=== PATIENT | female | born 1935 | race Caucasian/White ===

== ENCOUNTER 2017-01-24 20:22 | Emergency (ER) | payer MEDICARE, OTHER ==
--- NOTE | ~2017-01-24 | CR72 ---
[facility] A Service of [facility] & [facility] RADIOLOGY TEXT RESULTS PATIENT: WANDA BARKER LOCATION: [facility] : 33 UNIT #: [id number] AGE: [address]: Regan De Luna MD SEX: F ORDER DR: [id number] [facility] [address] [place], [place] [address] [id number] E MR#: [id number] Acc #: [id number] NAME: WANDA BARKER : 1935 SEX: F STUDY DATE/TIME: 01/24/2017 20:58 UNIT: [facility] ROOM: STUDY DESCRIPTION: CR Chest Single View Portable Attending Physician: Regan De Luna Ordering Physician: Ed Doc Dinesh Kent Primary Care Physician: Darian Benavides M.D. MEDICAL IMAGING REPORT This report is preliminary unless electronic signature is present EXAM Portable chest HISTORY Shortness of air, weakness, confusion since yesterday. FINDINGS Portable view of the chest demonstrates moderate lung volumes satisfactory technique. No infiltrates or effusions. Heart and mediastinum unremarkable except mild aortic atherosclerotic changes. Areas of scattered parenchymal opacity could represent areas of fibrosis or scarring but no acute airspace disease, consolidation or effusions. No pneumothorax. Dictated by... Dontrell Knutson M.D. THIS IS AN ELECTRONICALLY VERIFIED REPORT Dontrell Knutson M.D. at 01/25/2017 10:11 AM JULIAN/lr TD: 01/25/2017 03:28 JOB #: [id number] MEDICAL IMAGING REPORT Page 1 of 1 COPY
--- NOTE | ~2017-01-24 | EKG ---
PATIENT: WANDA BARKER UNIT #: [id number] Ventricular Rate: 88 BPM Atrial Rate: 88 BPM P-R Interval: 160 ms QRS Duration: 86 ms Q-T Interval: 368 ms QTC Calculation(Bezet): 445 ms P Centerview: 66 degrees Calculated R Centerview: -28 degrees Calculated T Centerview: 68 degrees Diagnosis Line: Normal sinus rhythm Diagnosis Line: Normal ECG Diagnosis Line: No previous ECGs available Diagnosis Line: Confirmed by FLAQUITA VALIENTE MD ([id number]) on Diagnosis Line: 01/26/2017 2:49:00 PM INTERPRETING MD: KANDICE
--- NOTE | ~2017-01-24 | CT71 ---
[facility] A Service [facility] RADIOLOGY TEXT RESULTS PATIENT: WANDA BARKER LOCATION: [facility] : 33 UNIT #: [id number] AGE: [address]: Regan De Luna MD SEX: F ORDER DR: [id number] [facility] [address] [place], [place] [address] [id number] E MR#: [id number] Acc #: [id number] NAME: WANDA BARKER : 1935 SEX: F STUDY DATE/TIME: 01/24/2017 22:11 UNIT: [facility] ROOM: STUDY DESCRIPTION: CT Head Wo Contrast Attending Physician: Cy De Luna M.D. Ordering Physician: Physician Non-Staff Primary Care Physician: Darian Benavides M.D. MEDICAL IMAGING REPORT This report is preliminary unless electronic signature is present EXAM Noncontrast head CT. HISTORY Sent by Dinesh for evaluation of confusion, weakness, tremors x2 days. TECHNIQUE This CT exam was performed with one or more of the following radiation dose reduction techniques: automatic exposure control, adjustment of mA and/or kV according to patient size, and iterative reconstruction. FINDINGS Axial noncontrast imaging of the brain demonstrates generalized atrophy. Decreased attenuation of the periventricular white matter is nonspecific, but may reflect chronic microvascular disease. No large vessel infarct. No mass, mass effect or midline shift. Intracranial vascular calcifications are noted within the cavernous carotids and vertebral vessels. Bony calvaria, skull base, mastoids and sinuses unremarkable. IMPRESSION 1. No acute intracranial abnormality identified. 2. Generalized atrophy with periventricular white matter changes, which may reflect chronic microvascular disease. Dictated by... Dontrell Knutson M.D. THIS IS AN ELECTRONICALLY VERIFIED REPORT Dontrell Knutson M.D. at 01/25/2017 7:05 PM JULIAN/derian TD: 01/25/2017 05:20 JOB #: [id number] [facility] A Service [facility] RADIOLOGY TEXT RESULTS PATIENT: WANDA BARKER LOCATION: [facility] #: [id number] : 33 UNIT #: [id number] AGE: [address]: Regan De Luna MD SEX: F ORDER DR: MEDICAL IMAGING REPORT Page 1 of 1 COPY
[~2017-01-24 20:22] MED LIST: BENICAR20 MG PO; HYDROCHLOROTHIA25 MG PO
[2017-01-24 21:31] LABS: BASOPHIL% 0.5 % (0-2.5); EOSINOPHIL# 0.1 X10e3 (0-0.7); EOSINOPHIL% 1.3 % (0.0-7.0); HEMATOCRIT 26.4 % (35.0-45.0); HEMOGLOBIN 8.7 gm/dL (12.0-16.0); LYMPHOCYTE# 1.9 X10e3 (1.0-3.5); LYMPHOCYTE% 34.4 % (17.0-45.0); MEAN CELL VOLUME 88.2 FL (83-96); MEAN CORPUSCULAR HGB CONC 32.9 g/dL (30-36); MONOCYTE# 0.7 X10e3 (0-1.0); MONOCYTE% 13.2 % (3.0-12.0); NEUTROPHIL# 2.8 X10e3 (1.5-7.1); NEUTROPHIL% 50.6 % (40-75); PLATELET COUNT 169 X10e3 (140-420); RED CELL DISTRIBUTION WIDTH 19.8 % (11.0-15.5); WHITE BLOOD COUNT 5.5 X10e3 (4.0-10.5)
[2017-01-24 21:33] LABS: DIFF IND NO
[2017-01-24 21:55] LABS: ALBUMIN SERUM 2.9 g/dL (3.5-5.0); BILIRUBIN, DIRECT 0.1 mg/dL (0.0-0.2); BILIRUBIN,INDIRECT 0.2 mg/dL (0.0-0.9); BILIRUBIN,TOTAL 0.3 mg/dL (0.2-2.0); BUN/CREATININE RATIO 25.55; CALCIUM SERUM 9.2 mg/dL (8.4-10.2); CREATININE SERUM 0.9 mg/dL (0.6-1.4); GLOM FILT RATE Estimated 58.8 mL/min (>60); POTASSIUM 3.6 mmol/L (3.5-5.1); PROTEIN TOTAL SERUM 8.4 g/dL (6.0-8.3)
[2017-01-24 23:13] LABS: POC - CKMB 2.4 ng/mL (0.0-7.9); POC - TROPONIN <0.05 ng/mL (<=0.05)
[2017-01-24 23:19] LABS: URINE SOURCE CLEAN CATCH
[2017-01-24 23:25] LABS: URINE APPEARANCE CLEAR; URINE BILIRUBIN NEG (NEG); URINE BLOOD 2+ (NEG); URINE COLOR YELLOW; URINE GLUCOSE NEG (NEG); URINE KETONE NEG (NEG); URINE LEUKOCYTE ESTERASE 1+ (NEG); URINE NITRATE NEG (NEG); URINE PH 6.5 (5-8); URINE PROTEIN 2+ (NEG); URINE SPECIFIC GRAVITY 1.024 (1.003-1.035)
[2017-01-24 23:27] LABS: CULTURE INDICATED? YES; URINE BACTERIA AUWI 1+ (NEGATIVE); URINE SQUAMOUS EPITHELIAL CELL NONE SEEN /[HPF]
[2017-01-26] MEDS ORDERED: BENICAR20 MG PO (21:21)
[2017-01-26] MEDS ORDERED: HYDROCHLOROTH12.5 M1 PO (21:22)
[2017-01-26] MEDS ORDERED: COLCRYS0.6 M2 PO (21:22)
[2017-01-26] MEDS ORDERED: NITROFURANTOIN100 M4 PO (21:24)
== END 2017-01-25 00:20 | disposition home or self-care (01) ==
LOC: CED 20:22
PROVIDERS: Emergency Medicine
DX: N30.00 Acute cystitis without hematuria (principal); R41.0 Disorientation, unspecified; D64.9 Anemia, unspecified; I10 Essential (primary) hypertension
CPT/HCPCS: 36415; 70450; 71010; 80048; 80076; 81003; 82553; 84484; 85025; 87086; 93005; 99285

== ENCOUNTER 2017-01-26 20:31 | Observation (INO) | payer MEDICARE, OTHER ==
--- NOTE | ~2017-01-26 | DS ---
Unit #: [id number] #: [id number] Patient: WANDA ANN [id number] [address] [place], [place] [address] [id number] I MR#: [id number] NAME: WANDA ANN. ROOM: 559 Age: 82 Sex: F Admission Date: 01/26/2017 : 1935 Discharge Date: 01/28/2017 Attending Physician: Loretta Rachel M.D. Primary Care Physician: Darian Benavides M.D. DISCHARGE SUMMARY PRINCIPAL DIAGNOSES 1. Toxic metabolic encephalopathy, likely multifactorial including recent urinary tract infection plus medication induced. 2. Hypokalemia. 3. Hypertension. 4. History of pseudogout. 5. Osteoporosis. 6. Patient report of RA. CLINICAL RESEARCH NURSE COORDINATOR Dr. Cantrell, Neurology. PROCEDURES 1. CT of the head without contrast on January 26, 2017 with no intracranial findings. Generalized atrophy and periventricular white matter changes are noted. 2. Chest x-ray on January 26, 2017, without acute findings. 3. MRI of the brain without contrast on January 27, 2017 with generalized atrophy, chronic white matter disease noted. 4. MRA of head and neck was normal. CLINICAL HISTORY AND HOSPITAL COURSE Ms. Ann is an 82-year-old female brought to the emergency department by family due to increasing confusion that began just before diagnosis of UTI. Patient was started on Macrobid initially on January 24 and sent home; however, her confusion did not improve and she was brought back to the emergency department. CT scan done on both January 24 and January 26 was unremarkable. Lab work was also essentially unremarkable with exception of some mild hypokalemia and patient was subsequently admitted. Workup included MRI of the brain which was unremarkable and patient was seen by Dr. Cantrell. Symptoms are most consistent with a toxic metabolic encephalopathy plus or minus delirium. I suspect perhaps she had confusion from a urine infection, though I will note urine culture from January 24 was negative. Perhaps, things were exacerbated by Macrobid. Family adamantly denies any short-term memory loss at home but it is difficult for me to assess whether this is the case or not. I am currently awaiting a TSH and vitamin B12 which I will replace if necessary; however, patient's delirium is improving on its own. She is mildly weak and I will arrange for home health given family does not want inpatient rehab. DISCHARGE CONDITION Stable. Unit #: [id number] #: [id number] Patient: WANDA ANN DISCHARGE STATUS Discharge to home. DISCHARGE MEDICATIONS 1. Benicar 20 mg daily. 2. Hydrochlorothiazide 12.5 mg daily. 3. Colchicine 0.6 mg daily. DISCHARGE INSTRUCTIONS 1. The patient was instructed to follow a regular diet. 2. She can increase her activity as tolerated under the care of home health. FOLLOWUP Patient will follow up with Dr. Benavides in one week, can have further testing for dementia as an outpatient at that time. Please note, I have discontinued antibiotics given her culture was negative. Time spent on discharge, 34 minutes. Dictated by... Loretta Rachel M.D. ROBERT/rigoberto TD: 01/28/2017 09:12 JOB #: [id number] DISCHARGE SUMMARY Page 1 of 1 X Loretta Rachel MD X DISCHARGE SUMMARY
--- NOTE | ~2017-01-26 | MR133 ---
[facility] A Service of [facility] & [facility] RADIOLOGY TEXT RESULTS PATIENT: WANDA BARKER LOCATION: [place] [address] : [birth year] UNIT #: [id number] AGE: [address]: Loretta Rachel MD SEX: F ORDER DR: [id number] [facility] [address] [place], [place] [address] [id number] I MR#: [id number] Acc #: [id number] NAME: WANDA BARKER. : 1935 SEX: F STUDY DATE/TIME: 01/27/2017 9:00 UNIT: CEDOF ROOM: 01525 STUDY DESCRIPTION: MR MRA Neck WWo Contrast Attending Physician: Carina Walker M.D. Ordering Physician: Cassie Hedrick M.D. Primary Care Physician: Darian Benavides M.D. MRI CENTER REPORT This report is preliminary unless electronic signature is present. EXAM MRA of the cervical carotid vertebral arteries HISTORY SUPPLIED Left-sided weakness beginning on the with increasing confusion. TECHNIQUE 3D [id number] MRA was performed of the cervical carotids and vertebral arteries. FINDINGS There is motion degradation artifact. The vessels are tortuous and moderately irregular. No hemodynamically significant stenosis identified in either carotid or vertebral artery. CONCLUSION Motion-degraded study. No significant stenosis identified in either bifurcation or either vertebral artery. Dictated by... Dave Redd M.D. THIS IS AN ELECTRONICALLY VERIFIED REPORT Dave Redd M.D. at 01/28/2017 8:39 AM STEPHANIE/warren TD: 01/27/2017 10:45 JOB #: [id number] MRI CENTER REPORT Page 1 of 1 COPY
--- NOTE | ~2017-01-26 | CO ---
Unit #: [id number] #: [id number] Patient: WANDA BARKER [id number] [facility] [address] [place], [place] [address] [id number] I MR#: [id number] NAME: WANDA BARKER. ROOM: 559 Age: 82 Sex: F Admission Date: 01/26/2017 : 1935 Attending Physician: Loretta Rachel M.D. Primary Care Physician: Darian Benavides M.D. Consultation Date: 01/27/2017 CONSULTATION REPORT PRIMARY CARE PHYSICIAN Dr. Darian Benavides. REASON FOR CONSULTATION Mental status changes. PATIENT IDENTIFICATION This is an 82-year-old, right-handed, white female, who is evaluated in room ER 20 at [facility]. SOURCE OF INFORMATION The patient, her daughter, and evaluation done by admitting team. PROBLEM LIST 1. History of pseudogout. 2. Osteoporosis. 3. Hypertension. 4. History of left knee surgery. 5. Recent diagnosis of UTI, for which she was started on treatment. 6. She does have these kind of situation whenever she has infection or she is treated with antibiotics. HISTORY OF PRESENT ILLNESS This 82-year-old female, who actually was seen in the emergency room I believe on 01/24/2017. She was found to have mild UTI. She was started on Macrobid and sent home. She came back with more confusion. She was given some fluids and everything else was evaluated and she is doing great. She already had CT done, which was unremarkable. She had MRI done, which was unremarkable. She had MRA of head and neck, which was unremarkable. She is afebrile. The labs otherwise looked okay. No falls or injuries. No seizures. No migraines. No meningitis. No insect bites. No change in medication. I talked to her daughter and this patient is normally very fine and she has no medical problems and right Now she is nonfocal. PAST MEDICAL HISTORY As discussed above. PAST SURGICAL HISTORY As discussed above. ALLERGIES Unit #: [id number] #: [id number] Patient: WANDA BARKER None known to me. HOME MEDICATIONS Benicar 20 mg, colchicine 0.6 mg daily, hydrochlorothiazide 12.5 mg daily, Macrobid 100 mg b.i.d. Medication here, please refer to the MAR. FAMILY HISTORY Mother at age 42 from cardiomyopathy. Brother of coronary artery disease. SOCIAL HISTORY I believe she is single. She was a one pack a day smoker, quit about 15 years ago. Denies any alcohol or drug use. REVIEW OF SYSTEMS Mostly as discussed in the history of present illness. Right now, all the symptoms are resolved. No headaches. No double vision. No earache, runny nose, or sore throat. No chest pain. No nausea, vomiting, or diarrhea. No shortness of air. No other neurologic issues or psych issues. PHYSICAL EXAMINATION VITAL SIGNS: Temperature 97.8, pulse 96, respirations 16, blood pressure 121/74, O2 saturations were 95% to 99%. Weight of 184 pounds, BMI was 31. NEUROLOGIC: The patient is awake. She is alert. She is oriented. She can name. She can follow commands. No right or left confusion. No finger agnosia. Cranial nerve examination demonstrates full mitchell of vision to confrontation. Eye movements are conjugate. I did not see any ptosis. I did not see any nystagmus. Extraocular movements are intact. Sensation on the face and scalp are normal. Strength of muscles of facial expression normal. Hearing seemed to be intact bilaterally. Tongue was midline. Uvula was midline. Palate elevation was normal. Head turning and shoulder shrugs were unremarkable. Motor examination demonstrated normal bulk, tone. Strength was essentially 5-/5 all over. Sensory examination intact for soft touch and pain sensation. No extinction was seen. Romberg was not evaluated. Gait examination was deferred. I could not get any reflexes. Toes are equivocal. DIAGNOSTIC STUDIES IMAGING STUDIES: She had CT done on 01/24/2017. She had MRI done this morning, which shows some chronic white matter changes and generalized atrophy. MRA of head and neck really did not show anything major. LABORATORY RESULTS: Other labs showed random glucose of 142 to 161. White count was 5.8, H and H of 9.5 and 28.9, platelet count was 197. Urinalysis repeat study showed no significant signs of infection. IMPRESSION This is a very interesting 82-year-old female, who had a urinary tract Unit #: [id number] #: [id number] Patient: BARKER,NELLIE A infection and she was started on Macrobid. She has reportedly done this in the past whenever she has infection or was given antibiotic. She has mental status changes. She is doing fine right now. There is no stroke, TIA, or other issues. I will observe her. There is nothing focal neurologic. She does not have primary neurologic issue otherwise. Please have her see neurologist as outpatient. I would recommend aspirin because of her other issues and observe her. If there is any other question, please call me. There is no seizure. There are no other issues. Again, possibly multifactorial toxic metabolic encephalopathy and in senior citizen, sometime we can see a period of lag even when treatment is initiated, so if there is any other particular issue please let me know. Otherwise, I will observe her. Also consider B12, folate, and TSH evaluation which can be done electively anytime. Dictated by... Dinesh Prieto/demetria TD: 01/28/2017 00:10 JOB #: [id number] CONSULTATION REPORT Page 1 of 1 X Marcelo Cantrell MD X CONSULTATION REPORT
--- NOTE | ~2017-01-26 | DS ---
Unit #: [id number] #: [id number] Patient: WANDA BARKER [id number] [address] [address] [id number] I MR#: [id number] NAME: WANDA BARKER. ROOM: 559 Age: 82 Sex: F Admission Date: 01/26/2017 : 1935 Discharge Date: 01/28/2017 Attending Physician: Loretta Rachel M.D. Primary Care Physician: Darian Benavides M.D. DISCHARGE SUMMARY ADDENDUM Please note patient's vitamin B12 returned quite low at 190. I would recommend weekly IM vitamin B12 injections in her primary care office for 1 month and then IM injections once monthly afterwards. No prescription was given. Dictated by... Loretta Rachel M.D. ROBERT/derian TD: 01/31/2017 08:18 JOB #: [id number] DISCHARGE SUMMARY Page 1 of 1 X Loretta Rachel MD X DISCHARGE SUMMARY
--- NOTE | ~2017-01-26 | MR122 ---
[facility] A Service of [facility] & [facility] RADIOLOGY TEXT RESULTS PATIENT: WANDA BARKER LOCATION: [place] [address] : [birth year] UNIT #: [id number] AGE: [address]: Loretta Rachel MD SEX: F ORDER DR: [id number] [facility] [address] [place], [place] [address] [id number] I MR#: [id number] Acc #: [id number] NAME: WANDA BARKER. : 1935 SEX: F STUDY DATE/TIME: 01/27/2017 8:50 UNIT: C[facility] ROOM: 16928 STUDY DESCRIPTION: MR MRA Head Wo Contrast Attending Physician: Carina Walker M.D. Ordering Physician: Cassie Hedrick M.D. Primary Care Physician: Darian Benavides M.D. MRI CENTER REPORT This report is preliminary unless electronic signature is present. EXAM Intracranial MRA HISTORY Left-sided weakness beginning on 01/24/2017 with confusion. TECHNIQUE 3-D [id number] MRA was performed intracranially. FINDINGS Exam shows minimal irregularity in the carotid siphons. There is no significant narrowing. Vertebral basilar system is widely patent. There is no evidence of significant vascular stenosis or occlusion. No evidence of vascular cutoff or aneurysm. There is normal perfusion to the distal vascular beds. IMPRESSION Minimal irregularity of the carotid siphons, otherwise normal MRA of the brain. Dictated by... Dave Redd M.D. THIS IS AN ELECTRONICALLY VERIFIED REPORT Dave Redd M.D. at 01/28/2017 8:39 AM Kody TD: 01/27/2017 10:33 JOB #: [id number] MRI CENTER REPORT Page 1 of 1 COPY
--- NOTE | ~2017-01-26 | CT71 ---
[facility] A Service of [facility] RADIOLOGY TEXT RESULTS PATIENT: WANDA BARKER LOCATION: [place] [address] : [birth year] UNIT #: [id number] AGE: [address]: Carina Walker MD SEX: F ORDER DR: [id number] [facility] [address] [place], [place] [address] [id number] I MR#: [id number] Acc #: [id number] NAME: WANDA BARKER. : 1935 SEX: F STUDY DATE/TIME: 01/26/2017 22:32 UNIT: CEDOF ROOM: 03485 STUDY DESCRIPTION: CT Head Wo Contrast Attending Physician: Carina Walker M.D. Ordering Physician: Cassie Hedrick M.D. Primary Care Physician: Darian Benavides M.D. MEDICAL IMAGING REPORT This report is preliminary unless electronic signature is present EXAM CT head without contrast INDICATION Confusion since Saturday. PROCEDURE Unenhanced CT of the head. COMPARISON 01/24/[address] exam was performed with one or more of the following radiation dose reduction techniques: automatic exposure control, adjustment of mA and/or kV according to patient size, and iterative reconstruction. FINDINGS No acute hemorrhage, abnormal mass effect, extraaxial collection or hydrocephalus. Changes of chronic small vessel ischemic disease are similar to the prior. No definitive evidence for acute or early subacute large territory infarct. The paranasal sinuses and mastoid air cells are clear. There are innumerable small lucencies within the calvaria. This is unchanged from the prior. IMPRESSION No acute intracranial findings. No change from 01/24/2017. Dictated by... Cy Bal M.D. THIS IS AN ELECTRONICALLY VERIFIED REPORT [facility] A Service [facility] RADIOLOGY TEXT RESULTS PATIENT: WANDA BARKER LOCATION: [place] [address] : [birth year] UNIT #: [id number] AGE: [address]: Carina Walker MD SEX: F ORDER DR: Cy Bal M.D. at 01/27/2017 10:24 PM UZMA/rl TD: 01/27/2017 00:46 JOB #: [id number] MEDICAL IMAGING REPORT Page 1 of 1 COPY
--- NOTE | ~2017-01-26 | CR72 ---
[facility] A Service of [facility] & [facility] RADIOLOGY TEXT RESULTS PATIENT: WANDA BARKER LOCATION: [place] [address] : [birth year] UNIT #: [id number] AGE: [address]: Carina Walker MD SEX: F ORDER DR: [id number] [facility] [address] [place], [place] [address] [id number] I MR#: [id number] Acc #: [id number] NAME: WANDA BARKER : 1935 SEX: F STUDY DATE/TIME: 01/26/2017 21:56 UNIT: C[facility]OF ROOM: 81589 STUDY DESCRIPTION: CR Chest Single View Portable Attending Physician: Carina Walker M.D. Ordering Physician: Cassie Hedrick M.D. Primary Care Physician: Darian Benavides M.D. MEDICAL IMAGING REPORT This report is preliminary unless electronic signature is present EXAM Portable chest, 01/26/2017 HISTORY 82-year-old female with shortness of air and confusion for 2 days. COMPARISON Chest 01/24/2017 FINDINGS Frontal chest demonstrates clear lungs. No pleural effusion or pneumothorax. Heart size and mediastinum are normal. Pulmonary vasculature normal. IMPRESSION No acute cardiopulmonary findings. Dictated by... Roger Romo M.D. THIS IS AN ELECTRONICALLY VERIFIED REPORT Roger Romo M.D. at 01/27/2017 6:16 PM YULY/rl TD: 01/27/2017 00:09 JOB #: [id number] MEDICAL IMAGING REPORT Page 1 of 1 COPY
--- NOTE | ~2017-01-26 | EKG ---
PATIENT: WANDA BARKER UNIT #: [id number] Ventricular Rate: 99 BPM Atrial Rate: 99 BPM P-R Interval: 154 ms QRS Duration: 86 ms Q-T Interval: 372 ms QTC Calculation(Bezet): 477 ms P Josephine: 55 degrees Calculated R Josephine: -34 degrees Calculated T Josephine: 65 degrees Diagnosis Line: Sinus rhythm with occasional Premature ventricular Diagnosis Line: complexes Diagnosis Line: Left axis deviation Diagnosis Line: Abnormal ECG Diagnosis Line: When compared with ECG of 24-JAN-2017 21:56, Diagnosis Line: Premature ventricular complexes are now Present Diagnosis Line: Confirmed by FLAQUITA VALIENTE MD ([id number]) on Diagnosis Line: 01/27/2017 10:45:05 PM INTERPRETING MD: KANDICE
--- NOTE | ~2017-01-26 | HP ---
Unit #: [id number] #: [id number] Patient: WANDA BARKER [id number] [address] [place], [place] [address] [id number] I MR#: [id number] NAME: WANDA BARKER ROOM: 86066 Age: 82 Sex: F Admission Date: 01/26/2017 : 1935 Attending Physician: Carina Walker M.D. Primary Care Physician: Darian Benavides M.D. HISTORY AND PHYSICAL CHIEF COMPLAINT Change in mental status. DISCUSSION This is an 82-year-old really pleasant lady with history of hypertension, pseudogout, osteoporosis. She had a visit to the emergency room on with symptoms of change in mental status, loss of balance, confusion. She said she felt like "(1) " She came to the ER, and she had a CT scan, which was negative. She was found to have mild UTI. She was given Macrobid and was sent home. She came back again to the emergency room with worsening symptoms. Still she feels confused, loss of balance and unable to walk. She had repeat CT scan but does not note any new changes. She has been admitted for further workup and evaluation. She denies chest pain. She denies nausea, vomiting, abdominal pain, constipation, diarrhea, blood in the stool, loss of consciousness or any other complaint, but she has been complaining of some dizziness, also. PAST MEDICAL HISTORY 1. History of pseudogout. 2. Osteoporosis. 3. Hypertension. PAST SURGICAL HISTORY History of left knee surgery. SOCIAL HISTORY She used to smoke one pack daily. She quit 15 years ago. She denies alcohol. She denies illicit drug use. FAMILY HISTORY Mother at age 42 from cardiomyopathy. One brother has history of coronary artery disease. MEDICATIONS FROM HOME 1. Benicar 20 mg daily. 2. Colchicine 0.6 mg daily. 3. Hydrochlorothiazide 12.5 mg daily. 4. Macrobid 100 mg b.i.d. REVIEW OF SYSTEMS Twelve-point review of systems is negative except as in history of present illness. PHYSICAL EXAMINATION Unit #: [id number] #: [id number] Patient: WANDA BARKER GENERAL: Elderly female lying in bed comfortably. Currently not in any distress. She is alert, awake, oriented x3. CURRENT VITALS: Temperature 97.8, heart rate 95, respirations 23, blood pressure 169/70, oxygen 97% on room air. HEENT: Pupils are equal and reactive to light. Head is normocephalic and atraumatic. NECK: Neck is supple. No JVD. HEART: S1, S2. Regular rate and rhythm. LUNGS: Clear to auscultation bilaterally. No rhonchi. No wheezing. ABDOMEN: Abdomen is soft, nontender, nondistended. Bowel sounds are positive. EXTREMITIES: Inspection is normal. No cyanosis. No clubbing. No edema. NEUROLOGIC: No focal neurologic deficits. Cranial nerves II-XII intact. PSYCHIATRIC: Normal mood and affect. SKIN: Warm and dry. DIAGNOSTIC STUDIES LABORATORY WORKUP: White count is 5.8, hemoglobin 9, hematocrit 28.9, platelets 197. BNP is 87. Lactic acid level 1.2. INR is 1.1. BMP is pending at time of dictation. IMAGING: Chest x-ray - No infiltrate. CT scan shows no acute intracranial abnormality. Generalized atrophy with periventricular white matter changes reflect chronic microvascular disease. ASSESSMENT AND PLAN 1. Change in mental status, confusion, loss of balance. Will do further workup, stroke workup. CT head is negative. Will get MRI of brain, MRA of brain and MRA of neck also. Will ask neurology, Dr. Cantrell, to evaluate. 2. Recent UTI. Repeat UA is pending. While in the hospital treat with IV Rocephin. Culture from has been negative so far. 3. History of pseudogout. 4. Osteoporosis. 5. Hypertension. 6. DVT prophylaxis. Will place the patient on Lovenox. Dictated by Dinesh Richter/eleno TD: 01/27/2017 09:21 JOB #: [id number] Unit #: [id number] #: [id number] Patient: WANDA BARKER HISTORY AND PHYSICAL Page 1 of 1 X X HISTORY AND PHYSICAL
--- NOTE | ~2017-01-26 | MR18 ---
[facility] A Service [facility] RADIOLOGY TEXT RESULTS PATIENT: WANDA BARKER LOCATION: [place] [address] : [birth year] UNIT #: [id number] AGE: [address]: Loretta Rachel MD SEX: F ORDER DR: [id number] [facility] [address]. [place], [place] [address] [id number] I MR#: [id number] Acc #: [id number] NAME: WANDA BARKER : 1935 SEX: F STUDY DATE/TIME: 01/27/2017 8:01 UNIT: CEDOF ROOM: 10096 STUDY DESCRIPTION: MR Brain Wo Contrast Attending Physician: Carina Walker M.D. Ordering Physician: Cassie Hedrick M.D. Primary Care Physician: Darian Benavides M.D. MRI CENTER REPORT This report is preliminary unless electronic signature is present. EXAM MRI brain without contrast media HISTORY Left-sided weakness beginning 01/24/2017. Increasing confusion. TECHNIQUE Parasagittal and transaxial MR imaging of the brain was obtained with short and long TR. FINDINGS There is generalized enlargement of the ventricles and CSF-containing spaces. There are multiple foci of decreased attenuation throughout the periventricular white matter in both hemispheres. No mass lesions, mass effect, evidence of acute hemorrhage or edema. Diffusion imaging shows no evidence of recent infarction. CONCLUSIONS 1. Generalized atrophy. 2. Chronic white matter disease in both hemispheres statistically likely related to small vessel deep white matter ischemic changes. No evidence of acute ischemia or infarction. Dictated by... Dave Redd M.D. THIS IS AN ELECTRONICALLY VERIFIED REPORT Dave Redd M.D. at 01/28/2017 8:39 AM STEPHANIE/warren TD: 01/27/2017 10:34 JOB #: [id number] [facility] A Service [facility] RADIOLOGY TEXT RESULTS PATIENT: WANDA BARKER LOCATION: [place] [address] : [birth year] UNIT #: [id number] AGE: [address]: Loretta Rachel MD SEX: F ORDER DR: MRI CENTER REPORT Page 1 of 1 COPY
[2017-01-26] MEDS ORDERED: BENICAR20 MG PO (21:21)
[2017-01-26] MEDS ORDERED: COLCRYS0.6 M2 PO (21:22)
[2017-01-26] MEDS ORDERED: HYDROCHLOROTH12.5 M1 PO (21:22)
[2017-01-26] MEDS ORDERED: NITROFURANTOIN100 M4 PO (21:24)
[2017-01-26 22:23] LABS: BASOPHIL% 0.7 % (0-2.5); DIFF IND NO; EOSINOPHIL# 0.1 X10e3 (0-0.7); EOSINOPHIL% 1.5 % (0.0-7.0); HEMATOCRIT 28.9 % (35.0-45.0); HEMOGLOBIN 9.5 gm/dL (12.0-16.0); LYMPHOCYTE# 1.8 X10e3 (1.0-3.5); LYMPHOCYTE% 30.8 % (17.0-45.0); MEAN CELL VOLUME 88.8 FL (83-96); MEAN CORPUSCULAR HEMOGLOBIN 29.3 PG (28-34); MEAN CORPUSCULAR HGB CONC 32.9 g/dL (30-36); MEAN PLATELET VOLUME 8.9 FL (6.5-11.5); MONOCYTE# 0.6 X10e3 (0-1.0); MONOCYTE% 10.8 % (3.0-12.0); NEUTROPHIL# 3.2 X10e3 (1.5-7.1); NEUTROPHIL% 56.2 % (40-75); PLATELET COUNT 197 X10e3 (140-420); RED BLOOD COUNT 3.25 X10e (3.90-5.30); RED CELL DISTRIBUTION WIDTH 19.9 % (11.0-15.5); WHITE BLOOD COUNT 5.8 X10e3 (4.0-10.5)
[2017-01-26 22:32] LABS: INR 1.1; PARTIAL THROMBOPLASTIN TIME 27.1 SECONDS (23.5-31.3)
[2017-01-26 23:20] LABS: URINE SOURCE CLEAN CATCH
[2017-01-26 23:26] LABS: URINE APPEARANCE CLEAR; URINE BILIRUBIN NEG (NEG); URINE BLOOD 2+ (NEG); URINE COLOR YELLOW; URINE GLUCOSE NEG (NEG); URINE KETONE NEG (NEG); URINE LEUKOCYTE ESTERASE NEG (NEG); URINE NITRATE NEG (NEG); URINE PROTEIN 1+ (NEG); URINE SPECIFIC GRAVITY 1.013 (1.003-1.035); URINE UROBILINOGEN 0.2 MG/DL (NEG)
[2017-01-26 23:30] LABS: URBCS1 AUWI 0-2 /[HPF] (0-2); URINE BACTERIA AUWI NEG (NEGATIVE); URINE SQUAMOUS EPITHELIAL CELL OCC /[HPF]; UWBCS1 AUWI 0-2 (0-5)
[2017-01-26 23:36] LABS: CULTURE INDICATED? NO
[2017-01-26 23:48] LABS: ALBUMIN SERUM 3.1 g/dL (3.5-5.0); ALKALINE PHOSPHATASE 42 U/L (32-92); ALT (SGPT) 20 U/L (10-40); AST (SGOT) 21 U/L (10-42); BILIRUBIN,TOTAL 0.3 mg/dL (0.2-2.0); BLOOD UREA NITROGEN 17 mg/dL (9-23); BUN/CREATININE RATIO 15.45; CALCIUM SERUM 9.3 mg/dL (8.4-10.2); CARBON DIOXIDE 22 mmol/L (22-31); CHLORIDE 104 mmol/L (100-111); CREATININE SERUM 1.1 mg/dL (0.6-1.4); GLOM FILT RATE Estimated 46.1 mL/min (>60); GLUCOSE FASTING 142 mg/dL (70-110); POTASSIUM 3.3 mmol/L (3.5-5.1); PROTEIN TOTAL SERUM 8.7 g/dL (6.0-8.3); SODIUM 138 mmol/L (135-145)
[2017-01-26 23:52] LABS: BILIRUBIN, DIRECT <0.1 mg/dL (0.0-0.2); BILIRUBIN,INDIRECT 0.2 mg/dL (0.0-0.9)
[2017-01-27 02:35] LABS: %MB 2.4 % (0.0-4.0); MB 2.4 ng/ml
[2017-01-27 08:06] LABS: CALCIUM SERUM 9.6 mg/dL (8.4-10.2); GLOM FILT RATE Estimated 51.7 mL/min (>60); POTASSIUM 3.9 mmol/L (3.5-5.1)
[2017-01-28 06:19] LABS: HEMOGLOBIN 8.8 gm/dL (12.0-16.0); MEAN CELL VOLUME 89.2 FL (83-96); MEAN CORPUSCULAR HEMOGLOBIN 29.1 PG (28-34); MEAN CORPUSCULAR HGB CONC 32.6 g/dL (30-36); MEAN PLATELET VOLUME 8.1 FL (6.5-11.5); RED BLOOD COUNT 3.03 X10e (3.90-5.30); RED CELL DISTRIBUTION WIDTH 19.8 % (11.0-15.5); WHITE BLOOD COUNT 5.4 X10e3 (4.0-10.5)
[2017-01-28 07:19] LABS: BUN/CREATININE RATIO 20.83; CALCIUM SERUM 9.4 mg/dL (8.4-10.2); CREATININE SERUM 1.2 mg/dL (0.6-1.4); GLOM FILT RATE Estimated 41.5 mL/min (>60); POTASSIUM 3.3 mmol/L (3.5-5.1)
== END 2017-01-28 13:32 | disposition home or self-care (01) ==
LOC: CED 20:31 → CEDOF 23:40 → CED 23:58 → C5B 01-27 12:35 → CEDOF 01-27 12:35 → C5B 01-28 08:10
PROVIDERS: Emergency Medicine; Internal Medicine Endocrinology, Diabetes & Metabolism
DX: G92 Toxic encephalopathy (principal); N39.0 Urinary tract infection, site not specified; E87.6 Hypokalemia; I10 Essential (primary) hypertension; M81.0 Age-related osteoporosis without current pathological fracture; G31.9 Degenerative disease of nervous system, unspecified; Z87.891 Personal history of nicotine dependence; Z82.49 Family history of ischemic heart disease and other diseases of the circulatory system; Z87.39 Personal history of other diseases of the musculoskeletal system and connective tissue
CPT/HCPCS: 36415; 70450; 70544; 70549; 70551; 71010; 80048; 80076; 81003; 82550; 82553; 82607; 83605; 83880; 84443; 84484; 85025; 85027; 85610; 85730; 87040; 93005; 94760; 96372; 96374; 97162; 99285; A9577; C9113; G0378; G8978-GP; G8979-GP; G8980-GP; J1650; J2405

== ENCOUNTER 2017-02-13 09:28 | Inpatient (IN) | payer MEDICARE, OTHER ==
--- NOTE | ~2017-02-13 | CT71 ---
[facility]. [facility] A Service of [facility] & [facility] RADIOLOGY TEXT RESULTS PATIENT: WANDA BARKER LOCATION: A 240-01 : [birth year] UNIT #: [id number] AGE: [address]: Loretta Rachel MD SEX: F ORDER DR: [id number] [facility] [address] [place], [place] [address] [id number] MR#: [id number] Acc #: [id number] NAME: WANDA BARKER. : 1935 SEX: F STUDY DATE/TIME: 02/13/2017 14:18 UNIT: [facility] ROOM: STUDY DESCRIPTION: CT Head Wo Contrast Attending Physician: Raul Dennis M.D. Ordering Physician: Raul Dennis M.D. Primary Care Physician: Darian Benavides M.D. MEDICAL IMAGING REPORT This report is preliminary unless electronic signature is present EXAM CT head. HISTORY Altered mental status. Cannot walk. Confusion, dizziness 3-[address] head performed skull base through vertex without intravenous contrast. This CT exam was performed with one or more of the following radiation dose reduction techniques: automatic exposure control, adjustment of mA and/or kV according to patient size, and iterative reconstruction. COMPARISON 01/26/2017 FINDINGS Motion degraded study. Brainstem unremarkable. Cerebellum and cerebral hemispheres show overall preservation of pizarro matter-white matter differentiation. There is no evidence of hemorrhage. There is no clear indication of acute cortical ischemia. Areas of subtle hemorrhage or acute ischemia could be obscured by the motion artifact. Periventricular and deep white matter tract probable sequelae of chronic microvascular ischemia. Midline structures nondisplaced. No acute-appearing basal ganglia abnormality. Ventricles, cisterns and sulci show mild generalized enlargement. No intra- or extraaxial mass effect or abnormal intracranial fluid collection. Cavernous carotid and distal vertebral arterial calcifications. The intraorbital soft tissues are unremarkable. There is no fracture. Multifocal areas of lucency in the calvaria. Correlate with the patient's metabolic status. Correlate with any known history of malignancy. This could simply represent an unusual pattern of fatty infiltration of the marrow. In the appropriate clinical context, neoplastic disease might be STS. [facility] A Service of [facility] & [facility] RADIOLOGY TEXT RESULTS PATIENT: WANDA BARKER LOCATION: [facility] 240-01 : [birth year] UNIT #: [id number] AGE: [address]: Loretta Rachel MD SEX: F ORDER DR: considered. IMPRESSION 1. Please see complete dictation above for full details. Study degraded by streak artifact. No acute abnormality is seen. If the patient has ongoing neurologic symptoms, consider follow up imaging. There are periventricular and deep white matter tract probable sequelae of chronic microvascular ischemia. There is mild generalized atrophy. Extensive vascular calcification. 2. There is no fracture. 3. Abnormal bony mineralization pattern in the calvaria; multifocal hypodensities. No periosteal reaction or bone expansion. The appearance is somewhat nonspecific. It could be a reflection of the patient's metabolic status. In the appropriate clinical context, osseous neoplastic disease could be considered. Please correlate clinically. Dictated by... Dave Driver M.D. THIS IS AN ELECTRONICALLY VERIFIED REPORT Dave Driver M.D. at 02/13/2017 10:43 PM DEVON/tre TD: 02/13/2017 16:47 JOB #: [id number] MEDICAL IMAGING REPORT Page 1 of 1 COPY
--- NOTE | ~2017-02-13 | HP ---
Unit #: [id number] #: [id number] Patient: WANDA ANN 200076 [facility] [address] [place], [place] [address] [id number] MR#: [id number] NAME: WANDA ANN. ROOM: 96475 Age: 82 Sex: F Admission Date: 02/13/2017 : 1935 Attending Physician: Loretta Rachel M.D. Primary Care Physician: Darian Benavides M.D. HISTORY AND PHYSICAL CHIEF COMPLAINT Confusion. HISTORY OF PRESENT ILLNESS Miss Ann is an 82-year-old female who is brought to the emergency department by family due to increasing confusion. I will note patient was admitted to this facility January 26 through with presumed toxic-metabolic encephalopathy secondary to urinary tract infection with subsequent antibiotic therapy which may be a contributing factor. On day of discharge patient was significantly better, according to her daughter, but was still not at baseline. Patient has never actually completely returned to normal, per a second daughter with whom she is residing. The daughter with whom she is residing has noted some short-term memory loss but it has really been progressive over the last week or so. Patient has been up at night, wandering the house, not sleeping well and this became worse, particularly over the last three or four days. Patient was seen yesterday by her home health nurse who obtained a urine, which was sent to [facility], which is concerning for questionable infection. However, last evening patient was wandering the house, almost got out the door, was unable to hold a sandwich, could not figure out how to work the remote and for this reason was subsequently brought to the emergency department. Upon presentation the patient's vital signs were normal with the exception of some hypertension and a blood pressure of 155/55. CT scan of the head reveals chronic microvascular change but no other acute findings and she does not have any abnormal neurologic findings on exam currently. When I ask her why she is at the hospital, she repeats to me her past medical history but cannot really tell me why she is here now. She denies any dysuria. She has constant urinary frequency at night but this is unchanged. She denies any hematuria. She has been getting shortness of breath primarily on exertion for the last several months but denies any cough. She denies any chest pain. She states she has not had any diarrhea, nausea or vomiting. She has been more unsteady on her feet, according to daughter, and has been holding the wall to walk. The patient is being admitted for further evaluation and treatment of this urinary tract infection. I will note she did receive a dose of Rocephin in the ER. PAST MEDICAL HISTORY 1. Pseudogout. 2. Osteoporosis. 3. Hypertension. 4. She is being followed by Dr. Watson, I suspect for workup of mild hypercalcemia but I will clarify this with him tomorrow. 5. Recent hospitalization with confusion. Unit #: [id number] #: [id number] Patient: WANDA ANN 6. Vitamin B12 deficiency. Patient started injections in her primary care physician's office. PAST SURGICAL HISTORY Left knee surgery. HOME MEDICATIONS Include: 1. Benicar 20 mg daily. 2. Hydrochlorothiazide 12.5 mg daily. 3. [place] 7.5/325 one tablet q.i.d. p.r.n. for pain. 4. Alendronate 70 mg weekly. 5. Vitamin B12 injections in Dr. Benavides's office. ALLERGIES Macrobid and clarithromycin. FAMILY HISTORY Family history is significant for mother dying at age 42 from cardiomyopathy, one brother has coronary artery disease. SOCIAL HISTORY Patient has been residing with her daughter who does note some sundowning at night. She used to smoke one pack daily but quit about 15 years ago. There is no alcohol use. There is no illicit drug use. REVIEW OF SYSTEMS Somewhat difficult to obtain given patent's history is vague and she is tangential but it is negative with the exception of HPI. PHYSICAL EXAMINATION VITAL SIGNS: Temperature 98.0. Blood pressure 149/64. Pulse rate 92. Respiratory rate 15. Oxygen saturation is 95% on room air. GENERAL: Patient is awake. She is alert. She is oriented to place and self but not to time. HEENT: Pupils equally round and reactive to light bilaterally. Anicteric sclerae. No conjunctival pallor. Oropharynx: Perhaps mildly dry mucous membranes, no erythema or exudate. NECK: Neck is supple. No lymphadenopathy. No thyromegaly. No JVD. HEART: Heart is regular rate and rhythm, without murmur, gallop or rub. LUNGS: Lungs are clear to auscultation bilaterally, without wheezes, rhonchi or crackles. ABDOMEN: Abdomen is obese, it is soft, it is nontender, nondistended. Positive bowel sounds. No appreciable hepatosplenomegaly. EXTREMITIES: No cyanosis, clubbing or edema. Pedal pulse 2/4. SKIN: Skin is warm, moist, without rash. NEUROLOGIC: Cranial nerves II through XII intact. Sensation, strength and deep tendon reflexes are normal in upper and lower extremities bilaterally. I will note patient does have some difficulty following commands. Gait however was not assessed. PSYCHIATRIC: Again, mildly tangential and difficulty to redirect and answers tend to revisit past experiences but no suicidal or homicidal ideation. DIAGNOSTIC STUDIES LABORATORY: Lab work done in the emergency department reveals a white blood cell count of 5.7, hemoglobin 9.1, platelet count of 161,000 and sodium 141, potassium 3.6, chloride of 105, bicarb 24, BUN 22, creatinine Unit #: [id number] #: [id number] Patient: WANDA ANN A 1.1, glucose of 172. Of note calcium is elevated at 10.54 and albumin mildly low at 3.0. Corrected calcium would be approximately 11.3. Urinalysis reveals 5 to 10 WBCs, 1+ bacteria and 1+ leukocyte esterase. IMAGING: Chest x-ray done in the emergency department reveals cardiomegaly and chronic fibrosis of both lung mitchell. CT of the head without contrast done this evening is motion degraded but there is no acute abnormality. Abnormal bony mineralization in the calvaria is noted with multifocal hypodensities perhaps concerning for underlying multiple myeloma. Periventricular and deep white matter tract sequelae of small vessel disease noted. Mild generalized atrophy noted. Extensive vascular calcification Noted. ASSESSMENT 1. Toxic-metabolic encephalopathy that I suspect is multifactorial. 2. Questionable urinary tract infection. 3. Acute kidney injury, prerenal. 4. Hypercalcemia with elevated total calcium, concerning for underlying multiple myeloma. 5. 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 6. Vitamin B12 deficiency. 7. Hyperglycemia. 8. Normocytic anemia. 9. Mild protein malnutrition. 10. Obesity. 11. Subjective dyspnea. PLAN 1. Will place patient on inpatient status with med/surg. 2. I am going to continue empiric Rocephin in regard to urinary tract infection. I should have a urine culture available sometime tomorrow to determine whether indeed this is a urinary tract infection which it very well may be but with occasional squamous cells it may also represent a contaminant. 3. According to the patient's family, the patient is being seen by Dr. Watson and I question whether this is perhaps workup for a multiple myeloma. I am going to get an SPEP and a UPEP and I will briefly discuss with Dr. Watson tomorrow as well. 4. I will monitor mental status. I have discussed with the patient's family. This may simply be a toxic-metabolic encephalopathy but my clinical suspicion is that it is a metabolic encephalopathy on top of some underlying dementia that is with some subsequent behavioral issues and hallucinations at home that are worsened with infection. The patient's daughter with whom she resides tends to agree. 5. Low-dose IV fluids. 6. Will recheck calcium level in the morning and ensure that this is improving. 7. Will place on daily vitamin B12 injections while hospitalized. 8. Will followup glucose and blood counts. 9. I will have PT/OT evaluate and treat. 10. Lovenox for DVT prophylaxis. ADDENDUM Please note, patient's toxic metabolic encephalopathy may also be secondary to her hypercalcemia given corrected calcium is approximately 11.3. However, I have seen the patient in the past without significant Unit #: [id number] #: [id number] Patient: WANDA ANN A hypercalcemia, and she still had confusion at that time as well. Thus, I am going to initiate some higher dose IV fluids, but I am going to hold on Zometa at this time. If calcium is not improved tomorrow and mental status is not improved, will consider Zometa at that time. And of course, high likelihood patient has underlying multiple myeloma given her hypercalcemia, her elevated total protein level, and abnormal calvarial appearance on CT scan of the head. I will briefly discuss with Dr. Watson again tomorrow and officially consult if necessary. ROBERT/yani TD: 02/13/2017 18:29 JOB #: [id number] Dictated by Loretta Rachel M.D. ROBERT/adolfo TD: 02/13/2017 18:50 JOB #: [id number] HISTORY AND PHYSICAL Page 1 of 1 X Loretta Rachel MD HISTORY AND PHYSICAL
--- NOTE | ~2017-02-13 | EKG ---
PATIENT: WANDA BARKER UNIT #: [id number] Ventricular Rate: 95 BPM Atrial Rate: 95 BPM P-R Interval: 156 ms QRS Duration: 86 ms Q-T Interval: 354 ms QTC Calculation(Bezet): 444 ms P [place]: 53 degrees Calculated R [place]: -31 degrees Calculated T [place]: 69 degrees Diagnosis Line: Sinus rhythm with occasional Premature ventricular Diagnosis Line: complexes Diagnosis Line: Left axis deviation Diagnosis Line: Abnormal ECG Diagnosis Line: When compared with ECG of 26-JAN-2017 22:01, Diagnosis Line: No significant change was found Diagnosis Line: Confirmed by ROSA AGUILAR MD ([id number]) on Diagnosis Line: 02/14/2017 10:36:34 AM INTERPRETING MD: JEFF DEUTSCH
--- NOTE | ~2017-02-13 | DS ---
Unit #: [id number] #: [id number] Patient: WANDA ANN [id number] [address] [place], [place] [address] [id number] I MR#: [id number] NAME: WANDA ANN. ROOM: 240 Age: 82 Sex: F Admission Date: 02/13/2017 : 1935 Discharge Date: 02/14/2017 Attending Physician: Loretta Rachel M.D. Primary Care Physician: Darian Benavides M.D. DISCHARGE SUMMARY PRINCIPAL DIAGNOSES 1. Toxic metabolic encephalopathy, multifactorial. 2. Hypercalcemia, secondary to underlying multiple myeloma, status post IV fluids and Zometa x1. 3. Recent Escherichia coli and Klebsiella urinary tract infection diagnosed in Dr. Watson's office. 4. Mild memory loss with associated sundowning. 5. 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 6. Vitamin B12 deficiency with vitamin B12 level of [address] Watson's office. 7. Hyperglycemia. 8. Normocytic anemia with pending repeat hemoglobin. 9. Mild protein malnutrition. 10. History of hypertension, previously on hydrochlorothiazide. 11. Obesity. 12. Mild protein malnutrition. 13. Thrombocytopenia. [employer] None. PROCEDURES 1. CT of the head without contrast on February 13, 2017 with periventricular and deep white matter tract sequela of small vessel disease, generalized atrophy and extensive vascular calcification noted. Abnormal bony mineralization pattern in the calvaria with multifocal hypodensities. 2. Chest x-ray on February 13, 2017 with cardiomegaly and chronic fibrosis of both lung mitchell. CLINICAL HISTORY AND HOSPITAL COURSE Ms. Ann is an 82-year-old female brought in by family due to increasing confusion. Patient was hospitalized at this facility in late January for similar findings. The patient has a history of urinary tract infections and would become confused with infection. Urinalysis brought in by home health on February 13 was concerning for UTI and patient was started on empiric Rocephin. CT scan did not reveal any acute findings with the exception of some bony abnormalities as outlined below and patient was admitted. Urine culture here has been negative and antibiotics were initially discontinued. However, patient was seen last week by Dr. Watson and had a urine done in his office which is growing Klebsiella and E. coli. She Unit #: [id number] #: [id number] Patient: WANDA ANN never received treatment and here urine culture is negative; however, after discussion with Dr. Watson, I am going to treat with empiric ciprofloxacin given this might be contributing intermittently to her confusion. Also in regard to patient's confusion, she was found to be mildly hypercalcemic yesterday when corrected for albumin. Calcium was about 11.3. She also has other findings consistent with multiple myeloma including abnormal calvaria appearance on CT, elevated total protein, and mild elevation in creatinine. Dr. Watson confirms that patient does have multiple myeloma confirmed by laboratory test in his office so he has not discussed this with the family yet. Today, calcium after IV hydration is down to 9.7. However, given the intermittent hypercalcemia may be contributing to her confusion, I am going to give her a single dose of Zometa after discussion with Dr. Watson. Patient did become increasingly anemia following IV hydration and right now, hemoglobin is down to 7.5. I am going to recheck it later this afternoon and ensure it is stable and/or increasing. If so, this can be followed up by Dr. Watson as an outpatient. The patient was also diagnosed recently with vitamin B12 deficiency, though the levels in Dr. Watson's office were significantly elevated compared to the ones in the hospital. I am going to put her on oral vitamin B12 supplementation after discussion with him. I do think patient does also have some underlying memory loss after discussion with her daughters. She is having sundowning at nighttime. She has been having increasing difficulty with ADLs and this might be a contributing component to her confusion and patient's daughter agrees. Patient today is significantly improved after hydration. I am going to treat her UTI after discussion with Dr. Watson, give her a dose of Zometa, recheck her hemoglobin, and await PT. If all of these are stable, I think she can be discharged home. I will note I am going to discontinue her hydrochlorothiazide given it can contribute to her hypercalcemia. DISCHARGE CONDITION Stable. DISCHARGE STATUS Discharge to home. DISCHARGE MEDICATIONS 1. Benicar 20 mg daily. 2. Lexa 7.5/325 one tablet four times daily p.r.n. for pain. 3. Vitamin B12 at 1000 mcg p.o. daily. 4. Ciprofloxacin 500 mg p.o. b.i.d. Please note again, I am discontinuing her hydrochlorothiazide. I am also going to hold her alendronate until seen and followed by Dr. Watson. DISCHARGE INSTRUCTIONS 1. The patient was instructed to follow a heart healthy diet and drink lots of water. 2. She can increase her activity as tolerated. FOLLOWUP Unit #: [id number] #: [id number] Patient: WANDA ANN Patient will follow up with Dr. Watson early next week. Time spent on discharge today, 53 minutes. Dictated by... Loretta Rachel M.D. ROBERT/rigoberto TD: 02/15/2017 15:49 JOB #: [id number] DISCHARGE SUMMARY Page 1 of 1 X Loretta Rachel MD X DISCHARGE SUMMARY
--- NOTE | ~2017-02-13 | CR72 ---
[facility] A Service of [facility] & [facility] RADIOLOGY TEXT RESULTS PATIENT: WANDA BARKER LOCATION: [facility] : 33 UNIT #: [id number] AGE: [address]: Raul Dennis MD SEX: F ORDER DR: [id number] [facility] [address] [place], [place] [address] [id number] MR#: [id number] Acc #: [id number] NAME: WANDA BARKER : 1935 SEX: F STUDY DATE/TIME: 02/13/2017 12:59 UNIT: [facility] ROOM: STUDY DESCRIPTION: CR Chest Single View Portable Attending Physician: Raul Dennis M.D. Ordering Physician: Ed Doctor [id number] [facility] Primary Care Physician: Darian Benavides M.D. MEDICAL IMAGING REPORT This report is preliminary unless electronic signature is present EXAM Portable chest HISTORY Shortness of breath and weakness onset today. TECHNIQUE Single view of the chest was obtained and compared with 01/26/2017 FINDINGS Cardiomegaly is again seen. There are linear scars versus atelectasis in both mid lung mitchell unchanged from the previous exam. No new infiltrates are seen. The vascular pattern is normal and no pleural fluid is seen. IMPRESSION Cardiomegaly. Chronic fibrosis both mid lung mitchell. No change from the previous exam. Dictated by... Devang Tan M.D. THIS IS AN ELECTRONICALLY VERIFIED REPORT Devang Tan M.D. at 02/13/2017 4:42 PM RLF/vane TD: 02/13/2017 13:32 JOB #: [id number] MEDICAL IMAGING REPORT Page 1 of 1 COPY
[~2017-02-13 09:28] MED LIST changes: +COLCRYS0.6 M2 PO; +HYDROCHLOROTH12.5 M1 PO; +NITROFURANTOIN100 M4 PO
[2017-02-13 09:56] LABS: BASOPHIL% 0.7 % (0-2.5); EOSINOPHIL# 0.1 X10e3 (0-0.7); EOSINOPHIL% 1.6 % (0.0-7.0); HEMATOCRIT 27.6 % (35.0-45.0); HEMOGLOBIN 9.1 gm/dL (12.0-16.0); LYMPHOCYTE# 1.6 X10e3 (1.0-3.5); LYMPHOCYTE% 28.8 % (17.0-45.0); MEAN CELL VOLUME 89.7 FL (83-96); MEAN CORPUSCULAR HEMOGLOBIN 29.6 PG (28-34); MEAN CORPUSCULAR HGB CONC 32.9 g/dL (30-36); MEAN PLATELET VOLUME 7.9 FL (6.5-11.5); MONOCYTE# 0.6 X10e3 (0-1.0); MONOCYTE% 11.3 % (3.0-12.0); NEUTROPHIL# 3.3 X10e3 (1.5-7.1); NEUTROPHIL% 57.6 % (40-75); PLATELET COUNT 161 X10e3 (140-420); RED BLOOD COUNT 3.08 X10e (3.90-5.30); RED CELL DISTRIBUTION WIDTH 20.1 % (11.0-15.5); WHITE BLOOD COUNT 5.7 X10e3 (4.0-10.5)
[2017-02-13 09:57] LABS: DIFF IND NO
[2017-02-13 10:23] LABS: BILIRUBIN, DIRECT 0.1 mg/dL (0.0-0.2); BILIRUBIN,INDIRECT 0.4 mg/dL (0.0-0.9); BILIRUBIN,TOTAL 0.5 mg/dL (0.2-2.0); CALCIUM SERUM 10.5 mg/dL (8.4-10.2); CREATININE SERUM 1.1 mg/dL (0.6-1.4); GLOM FILT RATE Estimated 46.1 mL/min (>60); POTASSIUM 3.6 mmol/L (3.5-5.1); PROTEIN TOTAL SERUM 8.8 g/dL (6.0-8.3)
[2017-02-13] MEDS ORDERED: PATIENT'S PHARMACY (15:48)
[2017-02-13] MEDS ORDERED: BENICAR PO (15:48)
[2017-02-13] MEDS ORDERED: ALENDRONATE SOD70 MG PO (15:49)
[2017-02-13] MEDS ORDERED: HYDROCODON-ACE1 EAC9 PO (15:49)
[2017-02-13] MEDS ORDERED: MICROZIDE12.5 M1 PO (15:49)
[2017-02-14 07:35] LABS: BUN/CREATININE RATIO 19.16; CALCIUM SERUM 9.7 mg/dL (8.4-10.2); CREATININE SERUM 1.2 mg/dL (0.6-1.4); GLOM FILT RATE Estimated 41.5 mL/min (>60); POTASSIUM 3.5 mmol/L (3.5-5.1)
[2017-02-14 07:57] LABS: HEMATOCRIT 23.4 % (35.0-45.0); HEMOGLOBIN 7.5 gm/dL (12.0-16.0); MEAN CELL VOLUME 91.5 FL (83-96); MEAN CORPUSCULAR HEMOGLOBIN 29.4 PG (28-34); MEAN CORPUSCULAR HGB CONC 32.2 g/dL (30-36); MEAN PLATELET VOLUME 8.3 FL (6.5-11.5); RED BLOOD COUNT 2.56 X10e (3.90-5.30); RED CELL DISTRIBUTION WIDTH 20.1 % (11.0-15.5); WHITE BLOOD COUNT 5.4 X10e3 (4.0-10.5)
[2017-02-14 10:56] LABS: IRON SERUM 76 ug/dL (28-170); TOTAL IRON BINDING CAPACITY 250 ug/dL (269-535); TRANSFERRIN 179 mg/dL (192-382); TRANSFERRIN SATURATION 30 % (20-50)
[2017-02-14 13:39] LABS: HEMATOCRIT 24.9 % (35.0-45.0); HEMOGLOBIN 8.2 gm/dL (12.0-16.0)
[2017-02-14] MEDS ORDERED: CIPRO PO (15:49)
[2017-02-14] MEDS ORDERED: TRAZODONE PO (15:50)
[2017-02-19 00:21] LABS: UPE RAND ABN BAND 1 1 mg/dL (()); UPE RAND ALPHA1 GLOB 5 % (()); UPE RAND PROT/CREAT 368 (21-161); UPE RANDOM ALB (PNL) 27 % (()); UPE RANDOM ALPHA 2 GLOB 25 % (()); UPE RANDOM BETA GLOB 33 % (()); UPE RANDOM CREATININE 122.2 mg/dL (20-320); UPE RANDOM GAMMA GLOB 10 % (()); UPE RANDOM TOTAL PROTEIN (PNL) 45 mg/dL (5-24)
[2017-02-20 14:00] LABS: ABN PROTEIN BAND 1 (SPE) 3.8 g/dL (()); SPE A1GLOB (PNL) 0.2 g/dL (0.2-0.3); SPE A2GLOB (PNL) 0.6 g/dL (0.5-0.9); SPE ALB (PNL) 3.1 g/dL (3.8-4.8); SPE BETA 1 GLOBULIN 4.4 g/dL (0.4-0.6); SPE BETA 2 GLOBULIN 0.5 g/dL (0.2-0.5); SPE GAMMA (PNL) 0.2 g/dL (0.8-1.7); SPE IFE (PNL) Has been added (())
== END 2017-02-14 17:09 | disposition home or self-care (01) | DRG 92 ==
LOC: CED 09:28 → CEDOF 17:35 → C2A 17:45 → CEDOF 17:45 → CED 17:45 → CEDOF 19:17 → C2A 19:17
PROVIDERS: Internal Medicine
DX: G92 Toxic encephalopathy (principal); N17.9 Acute kidney failure, unspecified; C90.00 Multiple myeloma not having achieved remission; F05 Delirium due to known physiological condition; E44.1 Mild protein-calorie malnutrition; N18.3 Chronic kidney disease, stage 3 (moderate); D69.6 Thrombocytopenia, unspecified; B96.1 Klebsiella pneumoniae [K. pneumoniae] as the cause of diseases classified elsewhere; N39.0 Urinary tract infection, site not specified; M81.0 Age-related osteoporosis without current pathological fracture; E53.8 Deficiency of other specified B group vitamins; E83.52 Hypercalcemia; F01.50 Vascular dementia, unspecified severity, without behavioral disturbance, psychotic disturbance, mood disturbance, and anxiety; D64.9 Anemia, unspecified; E66.9 Obesity, unspecified; I12.9 Hypertensive chronic kidney disease with stage 1 through stage 4 chronic kidney disease, or unspecified chronic kidney disease; B96.20 Unspecified Escherichia coli [E. coli] as the cause of diseases classified elsewhere; Z68.31 Body mass index [BMI] 31.0-31.9, adult
CPT/HCPCS: 36415; 70450; 71010; 80048; 80076; 82947; 83540; 83550; 84156; 84165; 84166; 85014; 85018; 85025; 85027; 86334; 93005; 94760; 96365; 97162; 97166; 99285; G8978-GP; G8979-GP; G8980-GP; G8987-GO; G8988-GO; G8989-GO; J0696; J1630; J1650; J2405; J3420; J3489

== ENCOUNTER 2017-02-17 08:40 | Inpatient (IN) | payer MEDICARE, OTHER ==
[~2017-02-17] VITALS: Ht 162.6 cm; Wt 83.5 kg
--- NOTE | ~2017-02-17 | TOC ---
Unit #: [id number] #: [id number] Patient: WANDA BARKER [id number] [address] [place], [place] [address] [id number] MR#: [id number] NAME: WANDA BARKER. ROOM: 218 Age: Sex: F Admission Date: 02/18/2017 : 1935 Attending Physician: Loretta Rachel M.D. Primary Care Physician: Darian Benavides M.D. TRANSFER OF CARE SUMMARY ADDENDUM Please note, patient's cytogenetic studies just returned and she has aggressive advanced multiple myeloma. Goals of care have been discussed with the family by Dr. Watson. At this time, family is opting for comfort measures and DNR status. Hospice is to be consulted. If patient is deemed appropriate for inpatient Hospice, a transfer there over the weekend. Dictated by... Loretta Rachel M.D. ROBERT/steve TD: 02/23/2017 14:22 JOB #: [id number] TRANSFER OF CARE SUMMARY Page 1 of 1 X Loretta Rachel MD TRANSFER OF CARE SUMMARY
--- NOTE | ~2017-02-17 | CR72 ---
[facility] A Service of [facility] & [facility] RADIOLOGY TEXT RESULTS PATIENT: WANDA BARKER LOCATION: [facility] 218-01 : [birth year] UNIT #: [id number] AGE: [address]: CORA SIMS MD SEX: F ORDER DR: [id number] [facility] [address] [place], [place] [address] [id number] I MR#: [id number] Acc #: [id number] NAME: WANDA BARKER : 1935 SEX: F STUDY DATE/TIME: 02/17/2017 14:31 UNIT: [facility] ROOM: [facility] STUDY DESCRIPTION: CR Chest Single View Portable Attending Physician: Cora Sims M.D. Ordering Physician: Physician Non-Staff Primary Care Physician: Darian Benavides M.D. MEDICAL IMAGING REPORT This report is preliminary unless electronic signature is present EXAM Single view chest INDICATIONS Shortness of air for 3 weeks. Weakness. FINDINGS Single AP view of the chest compared to 02/17/2017. Heart and mediastinal contours are within normal limits. There is some chronic interstitial opacities in both lungs. No focal consolidation. IMPRESSION No acute cardiopulmonary findings. Dictated by... Will Bradford M.D. THIS IS AN ELECTRONICALLY VERIFIED REPORT Will Bradford M.D. at 02/18/2017 8:07 AM RPC/jaron TD: 02/18/2017 00:13 JOB #: [id number] MEDICAL IMAGING REPORT Page 1 of 1 COPY
--- NOTE | ~2017-02-17 | HP ---
Unit #: [id number] #: [id number] Patient: WANDA BARKER [id number] [facility]. [place], [place] [address] [id number] I MR#: [id number] NAME: WANDA BARKER ROOM: 218 Age: 82 Sex: F Admission Date: 02/17/2017 : 1935 Attending Physician: Cora Sims M.D. Primary Care Physician: Darian Benavides M.D. HISTORY AND PHYSICAL CHIEF COMPLAINT Generalized weakness. HISTORY OF PRESENT ILLNESS The patient is an 82-year-old female taken to the emergency room at [facility] [place] [facility] by the family for increasing weakness. The patient had a prolonged hospital stay and was discharged on February 15 with toxic metabolic encephalopathy, hypercalcemia, and E. coli urinary tract infection. The patient was discharged home. Patient was feeling anxious and received Xanax by a family member and has had more generalized weakness and confusion. The patient was found to have a high ammonia level at [facility] [place] [facility] with a level in the range of 110 and is being admitted for the above reasons. The patient denies any fever, chills, nausea, or vomiting. The patient is more sleepy, and the history is obtained by speaking to patient's family at the bedside. PAST MEDICAL HISTORY 1. (1) . 2. Osteoporosis. 3. Hypertension. 4. Multiple myeloma. 5. Vitamin B12 deficiency. PAST SURGICAL HISTORY Left knee surgery. HOME MEDICATIONS 1. Benicar. 2. [place]. 3. Cipro. 4. Desyrel. 5. Trazodone. ALLERGIES Macrobid and clarithromycin. FAMILY HISTORY cardiomyopathy and coronary artery disease. SOCIAL HISTORY Patient has been residing with her daughter who does note some sundowning at night. She used to smoke one pack daily but quit about 15 years ago. There is no alcohol and no illicit drug use. Unit #: [id number] #: [id number] Patient: WANDA BARKER A REVIEW OF SYSTEMS A 14-point review of systems was obtained and only pertinent positive findings are described above. The remaining are negative. PHYSICAL EXAMINATION GENERAL: Patient is sitting on the bed not in acute distress. VITAL SIGNS: Temperature 98.2, pulse 96, respirations 20, saturating 98% on 2 liters, and blood pressure is 145/57. HEENT: Head atraumatic, normocephalic. Pupils equal, round, and reactive to light and accommodation. Extraocular movements are intact. NECK: Supple. LUNGS: Decreased air entry at the bases. HEART: Regular rate and rhythm. ABDOMEN: Soft. Positive bowel sounds. EXTREMITIES: No cyanosis, no clubbing. NEUROLOGIC: Alert, awake, and oriented. No gross focal motor deficit. DIAGNOSTIC STUDIES LABORATORY: WBC 5.6, hemoglobin 8, hematocrit 24.2, and platelets 140,000. Urinalysis is negative for infection. Sodium 139, potassium 3.2, chloride 103, bicarb 22, glucose 130, BUN 17, creatinine 1.2, AST 22, ALT 19, and total protein 8.8. Ammonia is 110. BNP is 116. Troponin is negative. CK total is 152. IMAGING: Chest x-ray shows interval worsening of interstitial and airspace opacities suggesting worsening pulmonary edema. Stable cardiomegaly. CT of the abdomen shows sigmoid diverticulosis without evidence of diverticulitis. No evidence for bowel obstruction. ASSESSMENT 1. Confusion and weakness. 2. Hypokalemia. 3. Hyper ammonia. 4. Pulmonary edema. PLAN Admit the patient to observation. Patient will be on telemetry. Continue with lactulose 30 grams q.6 to produce two to three soft stools. Patient received Lasix 20 mg. Avoid narcotics and replace electrolytes. Further recommendations will follow as more lab results are available. Dictated by Dinesh Shen TD: 02/17/2017 20:14 JOB #: [id number] Unit #: [id number] #: [id number] Patient: WANDA BARKER HISTORY AND PHYSICAL Page 1 of 1 X CORA SIMS MD HISTORY AND PHYSICAL
--- NOTE | ~2017-02-17 | CO ---
Unit #: [id number] #: [id number] Patient: WANDA ANN [id number] [facility]. [place], [place] [address] [id number] I MR#: [id number] NAME: WANDA ANN ROOM: 218 Age: 82 Sex: F Admission Date: 02/18/2017 : 1935 Attending Physician: Loretta Rachel M.D. Primary Care Physician: Darian Benavides M.D. Consultation Date: 02/18/2017 CONSULTATION REPORT REASON FOR CONSULTATION Multiple myeloma. Please evaluate. HISTORY OF PRESENT ILLNESS Wanda Ann is an 82-year-old, well known to me from a consultation the previous week in the office, was admitted to the hospital with generalized weakness and increasing confusion. She had been seen in the office on 02/07/2017 for evaluation of anemia. As a part of anemia, she was noted to have an elevated total protein level, and a serum protein electrophoresis was done. Serum protein electrophoresis showing IgG kappa, IgA kappa, monoclonal immunoglobulin spike measuring 4 g/dL. Ms. Knutson was originally fell in August breaking a few ribs on the right side. On 01/20/2017, she took a pain pill, was found by her daughter next day to be very confused and was taken to the emergency room, where a urinary tract infection was diagnosed and she was started on Macrobid and discharged home. With increasing confusion, she went back to the emergency room and was hospitalized on 01/26/2017 and discharged on the 01/28/2017, diagnosed with toxic metabolic encephalopathy thought to be related to Macrobid for urinary tract infection. After my evaluation on 01/08/2017, she was again admitted to the hospital with confusion and urinary tract infection was evaluated and urine cultures were negative, and was discharged home. Now, she was readmitted to the hospital with worsening confusion after being brought to the emergency room at [facility]. Workup during this admission revealed the presence of elevated ammonia level consistent with hepatic encephalopathy. Ammonia level was 110 at time of admission, and repeat was 153. She has been started on lactulose. At time of evaluation, Ms. Knutson is very confused and most of the historical information obtained from the daughter and son-in-law, who are at bedside. PAST MEDICAL HISTORY Pseudogout for which she was started on colchicine and also has diagnosed with osteoporosis. PAST SURGICAL HISTORY No recent surgeries. FAMILY HISTORY Negative for blood disorders or cancer. SOCIAL HISTORY She is a 25 pack years history of smoking, quitting more than 25 years ago. Does not drink any alcohol. Single. Lives with herself. Her 6 children who assist in her care. Unit #: [id number] #: [id number] Patient: WANDA ANN MEDICATIONS At home, Benicar; hydrochlorothiazide; and colchicine, which has stopped. ALLERGIES She has no known medication allergies. REVIEW OF SYSTEMS Difficult to obtain as the patient herself is quite confused, weight loss, falls, confusion as discussed. PHYSICAL EXAMINATION GENERAL: She is an elderly woman, arousable to alertness, but quite confused, VITAL SIGNS: Temperature is 98.1, pulse rate 90, respiratory rate 17, blood pressure 151/63, O2 saturation 100% room air. HEENT: Shows pupils are equal and reactive well to light. She is pale, but not icteric. Mucous membranes are dry. NECK: Without adenopathy, JVD, or thyromegaly. CARDIOVASCULAR: First and second heart sounds are heard and regular without murmurs, gallops, or rubs. LUNGS: Chest expansion is symmetric bilaterally currently with normal breath sounds. ABDOMEN: Soft and nontender. Bowel sounds are active. EXTREMITIES: Warm with good pulses. No edema, cyanosis, or clubbing. NEUROLOGIC: She is arousable to alertness, but is quite confused. Prominent asterixis. PSYCHIATRIC: Unable. SKIN: Some bruises. LYMPHATIC: No palpable lymph nodes. DIAGNOSTIC STUDIES LABORATORY RESULTS: CBC; white count of 6.5, hemoglobin 7.9, platelet count is 148,000. Basic metabolic panel shows a potassium of 3.4, BUN is 16, creatinine is 1.1, eGFR is 46.1. Ammonia level is 153 as mentioned. IMAGING STUDIES: CT scan of the abdomen and pelvis done without contrast shows sigmoid diverticulosis, but no other significant pathology including normal size liver and spleen with any evidence suggest chronic liver disease. CT scan of the abdomen and pelvis was personally reviewed by me and discussed the findings with Dr. Knutson of Radiology. ASSESSMENT AND PLAN Mahi Knutson is an 82-year-old with history of confusional state from 01/20/2017 after taking a pain pill, who said 4 ER visits and 2 hospitalizations in the course of the past 2 weeks, initially for confusion with urinary tract infection and also weakness and confusion. She has an elevated ammonia level, which remains unexplained and she has no history of liver disease. No history of alcohol abuse. Liver function tests are actually surprisingly quite normal. I discussed with Dr. Kaiser Knutson and reviewed the CAT scans given the possibility that she may have an infiltrative problem of the liver. I will plan a CT scan of the abdomen triple phase with IV contrast with plans for gentle hydration in view of her chronic kidney disease stage 3. Additionally, we will get a skeletal survey and a bone marrow aspiration biopsy to confirm the diagnosis of multiple myeloma. Possibilities of hepatic encephalopathy Unit #: [id number] #: [id number] Patient: WANDA ANN include amyloidosis as well as hepatic infiltration of myeloma, although both of these are quite uncommon. She is also severely anemic likely in part from multiple myeloma. I had an extensive discussion of the situation with her daughter and son-in-law, who are at bedside. We discussed about the likely diagnosis of myeloma, which I will confirm. We discussed that even if myeloma is confirmed, we may elect not to do any treatment given her advanced age, confusion, and issues of quality of life versus quantity of life. On discussion with the daughter, there is apparently some background confusion and forgetfulness going on for at least the year, which may have been a background on which the hepatic encephalopathy has been superimposed. In addition, Ms. Knutson is complaining of a lot of indigestion and vomiting, we will consult Dr. Jassi Torres of GI to evaluate for a possible EGD. It is certainly possible that a metastatic malignancy with infiltration may account for her hepatic encephalopathy, although does not seem very likely, but given the unusual presentation will pursue all options. Thank you for allowing us to participate in the care. Dictated by... Dinesh Javed/demetria TD: 02/20/2017 17:36 JOB #: [id number] CC: Gautam Vazquez M.D. CONSULTATION REPORT Page 1 of 1 X Johnson Watson MD X CONSULTATION REPORT
--- NOTE | ~2017-02-17 | CT6 ---
[facility] A Service of [facility] RADIOLOGY TEXT RESULTS PATIENT: WANDA BARKER LOCATION: [facility] 218 : 33 UNIT #: [id number] AGE: [address]: Loretta Rachel MD SEX: F ORDER DR: [id number] [facility] [address] [place], [place] [address] [id number] I MR#: [id number] Acc #: [id number] NAME: WANDA BARKER : 1935 SEX: F STUDY DATE/TIME: 02/18/2017 18:28 UNIT: [facility] ROOM: [facility] STUDY DESCRIPTION: CT Abdomen WWo Cont Attending Physician: Loretta Rachel M.D. Ordering Physician: Johnson Watson M.D. Primary Care Physician: Darian Benavides M.D. MEDICAL IMAGING REPORT This report is preliminary unless electronic signature is present EXAM CT abdomen without and with IV contrast. HISTORY Constipation for 10 days. Abdomen swelling for [address] exam was performed with one or more of the following radiation dose reduction techniques: Automatic exposure control, adjustment of mA and/or kV according to patient size, and iterative reconstruction. FINDINGS CT abdomen was performed without and with IV contrast including multiphase post IV contrast scans. The precontrast scans demonstrate no abnormal calcifications. Multiphase post IV contrast scans demonstrate no hepatic mass. No biliary dilatation. The gallbladder, spleen, pancreas, kidneys, and adrenal glands are normal. No ascites. No adenopathy. No bowel dilatation. Small hiatal hernia. Normal caliber abdominal aorta. IMPRESSION No suspicious findings in the abdomen. Dictated by... Kelvin Wolfe M.D. THIS IS AN ELECTRONICALLY VERIFIED REPORT Kelvin Wolfe M.D. at 02/19/2017 2:23 PM DFL/bd TD: 02/19/2017 13:13 [facility] A Service [facility] RADIOLOGY TEXT RESULTS PATIENT: WANDA BARKER [address] [id number] : [birth year] UNIT #: [id number] AGE: [address]: Loretta Rachel MD SEX: F ORDER DR: JOB #: [id number] MEDICAL IMAGING REPORT Page 1 of 1 COPY
--- NOTE | ~2017-02-17 | DS ---
Unit #: [id number] #: [id number] Patient: WANDA BARKER [id number] [address] [place], [place] [address] [id number] I MR#: [id number] NAME: WANDA BARKER. ROOM: 218 Age: 82 Sex: F Admission Date: 02/18/2017 : 1935 Discharge Date: 02/25/2017 Attending Physician: Loretta Rachel M.D. Primary Care Physician: Darian Benavides M.D. DISCHARGE SUMMARY ADDENDUM HOSPITAL COURSE Since last dictation, the patient was seen in consultation by Hospice, but at this time family did not want Hospice care. The patient's mental status has improved upon discontinuation of IV steroids and initiation of Haldol. Today, the patient is awake, alert, oriented at least to time and place and situation and is planning to be discharged to rehab. Per family, the plan is, again, correction facility for rehab and then transfer patient back home, at which time one of her daughters will reside with her. If she has worsening function of worsening mental status, they will consider Hospice at that time. DISCHARGE CONDITION Stable. DISCHARGE STATUS Transfer to rehab. DISCHARGE MEDICATIONS 1. Sodium bicarbonate 650 mg p.o. daily. 2. Lactulose 20 mg p.o. t.i.d. This should be titrated for 3-4 bowel movements per day. 3. Benicar 20 mg daily. 4. Xifaxan 550 mg p.o. b.i.d. 5. Claritin 10 mg daily. 6. Haldol 2 mg at bedtime. 7. Seroquel 25 mg at bedtime p.r.n. insomnia. 8. Lasix 20 mg daily. 9. Pantoprazole 40 mg daily. 10. Potassium chloride 20 mEq p.o. daily. DISCHARGE INSTRUCTIONS The patient was instructed to follow a heart healthy diet. She can increase her activity as tolerated and, again, titrate lactulose for 3-4 bowel movements daily. FOLLOWUP 1. The patient can follow up with Dr. Watson upon discharge from rehab. 2. The patient can follow up with her primary care provider, Dr. Benavides, upon discharge from rehab, as well. 3. If the patient has worsening functional and/or mental decline, Hospice would be appropriate in the future, given her very aggressive form of multiple myeloma and intolerance of treatment. Unit #: [id number] #: [id number] Patient: LUCEROTONYAYASSINE Reid Dictated by... Dinesh Love/eleno TD: 02/25/2017 13:29 JOB #: [id number] DISCHARGE SUMMARY Page 1 of 1 X Loretta Rachel MD X DISCHARGE SUMMARY
--- NOTE | ~2017-02-17 | TOC ---
Unit #: [id number] #: [id number] Patient: WANDA ANN [id number] [address] [place], [place] [address] [id number] I MR#: [id number] NAME: WANDA ANN. ROOM: 218 Age: 82 Sex: F Admission Date: 02/18/2017 : 1935 Attending Physician: Loretta Rachel M.D. Primary Care Physician: Darian Benavides M.D. TRANSFER OF CARE SUMMARY PRINCIPAL DIAGNOSES 1. Toxic metabolic encephalopathy, multifactorial. 2. Acute hepatic encephalopathy. 3. Severe dementia with behavioral disturbance, worsened with steroid therapy. 4. Multiple myeloma. 5. Acute on chronic anemia secondary to poor production, now status post transfusion of 2 units of packed red blood cells. 6. Moderate protein malnutrition. 7. Severe deconditioning. 8. Nonanion gap metabolic acidosis secondary to diarrhea. 9. Gastritis. 10. Esophagitis. 11. Pulmonary hypertension with right ventricular systolic pressure of 45 mmHg. 12. Acute diastolic congestive heart failure. 13. Thrombocytopenia. 14. Steroid induced hyperglycemia. 15. Obesity. CONSULTANTS 1. Dr. Watson, oncology. 2. Dr. Torres, gastroenterology. PROCEDURE 1. Bone marrow biopsy, which has confirmed multiple myeloma. 2. EGD on February 20, 2017, with esophagitis and multiple ulcers in the distal esophagus along with a nonobstructing acquired esophageal ring and hiatal hernia, mild diffuse gastritis with negative biopsy, multiple small aphthous ulcers and lesions in duodenal bulb consistent with duodenitis. DIAGNOSTIC STUDIES IMAGING: Chest x-ray on February 17, 2017, with interstitial edema and stable cardiomegaly. CT scan of the abdomen and pelvis without contrast on February 17, 2017, with sigmoid diverticulosis. CT of the abdomen with and without contrast on February 18, 2017, with no suspicious findings. Skeletal survey on February 19, 2017, with too numerous to count small punched out lytic lesions within the bony calvaria and proximal femurs, left Unit #: [id number] #: [id number] Patient: WANDA ANN greater than right; deformity of right posterolateral eighth rib suggestive of, perhaps, pathologic fracture. CLINICAL HISTORY AND HOSPITAL COURSE Ms. Ann is an 82-year-old, female who has had a progressive, but rapid, change in mental status who presented back to this facility after recent discharge with increasing weakness and confusion. In the emergency department, ammonia level was checked and this was found to be elevated at 110 and patient was admitted for hepatic encephalopathy. Again, patient was admitted and placed on lactulose. Dr. Torres was consulted. With the exception of albumin, patient's lab work was not significantly suggestive of liver disease. Patient did undergo EGD, but did not reveal any finding of any varices. Viral hepatitis panel was unremarkable. At this time, plan is for symptomatic management only with lactulose and Xifaxan. (1) liver biopsy at this point would not change patient's treatment. Patient has a history of recently diagnosed multiple myeloma for which she had not started treatment. For this reason, Dr. Watson was consulted. Bone marrow biopsy and skeletal survey did indeed confirm multiple myeloma. SPEP and UPEP done last hospitalization were also consistent with these findings. Patient has been placed on IV steroids for treatment, but, unfortunately, following the initiation of steroid treatment; patient has been having significant delirium, is hyperverbal, and having worsening insomnia. I am currently in the process of discussing continued IV steroid treatment with Dr. Watson and we will follow his recommendations. Patient also has chronic anemia, which has worsened during hospitalization. Fecal occult blood testing has been negative. Patient only has mild vitamin B12 deficiency and iron level had been stable. She has been transfused two units of packed red blood cells and hemoglobin is now stable. Patient has had progressive increasing confusion over the last several months at home. I suspect this is multifactorial including her multiple myeloma and her high ammonia level with some underlying dementia with sundowning. She is having associated behavior disturbance and insomnia. We are currently in the process of adjusting medications to help insomnia with behavioral disturbance; however, as noted above, this is worse with IV steroids and, again, we will discuss with oncology. Patient is significantly deconditioned and plan is to discharge to subacute rehab upon completion of IV steroids and/or early next week when mental status improves. Further hospital course to be dictated as an addendum. Dictated by... Loretta Rachel M.D. ROBERT/derian TD: 02/23/2017 14:05 JOB #: [id number] Unit #: [id number] #: [id number] Patient: WANDA ANN TRANSFER OF CARE SUMMARY Page 1 of 1 X Loretta Rachel MD TRANSFER OF CARE SUMMARY
--- NOTE | ~2017-02-17 | CT134 ---
[facility] A Service of [facility] RADIOLOGY TEXT RESULTS PATIENT: WANDA BARKER LOCATION: A : 33 UNIT #: [id number] AGE: [address]: Loretta Rachel MD SEX: F ORDER DR: [id number] [facility] [address] [place], [place] [address] [id number] I MR#: [id number] Acc #: [id number] NAME: WANDA BARKER : 1935 SEX: F STUDY DATE/TIME: 02/19/2017 10:59 UNIT: [facility] ROOM: 218 STUDY DESCRIPTION: CT Guide Attending Physician: Loretta Rachel M.D. Ordering Physician: Loretta Rachel M.D. Primary Care Physician: Darian Benavides M.D. MEDICAL IMAGING REPORT This report is preliminary unless electronic signature is present EXAM CT-guided bone marrow biopsy. INDICATIONS Multiple myeloma. Patient has a history of generalized weakness anemia for [address] exam was performed with one or more of the following radiation dose reduction techniques: automatic exposure control, adjustment of mA and/or kV according to patient size, and iterative reconstruction. PROCEDURE The risks, benefits and alternatives to the procedure were explained to the patient's Power of Branch Operations Specialist and signed informed consent was obtained. The patient was placed prone on the CT scanner gantry and preliminary CT scan was performed through the region of interest. An appropriate site overlying the patient's left iliac bone was selected. The overlying skin was marked. The patient was prepped and draped in sterile fashion. A time-out was performed as per protocol. Skin and subcutaneous tissues were anesthetized with buffered lidocaine. A bone marrow biopsy needle was advanced into the left iliac bone Repeat CT scan confirmed appropriate position of the needle. Needle was then advanced into the bone marrow and bone marrow aspirate was obtained. Needle was advanced further into the bone marrow and then removed, which yielded an adequate core sample. Then pressure was applied until hemostasis was obtained. The patient tolerated the procedure well. There were no immediate complications. Moderate sedation time was provided consisting of 1 mg of Versed and 25 mcg of Fentanyl. I supervised the IVR nurse and monitored the patient's vital signs for a total of 15 minutes face to face time. IMPRESSION Technically successful bone marrow biopsy as noted above. CT was used [facility]. [facility] A Service of [facility] RADIOLOGY TEXT RESULTS PATIENT: WANDA BARKER LOCATION: [place] [address] : 33 UNIT #: [id number] AGE: [address]: Loretta Rachel MD SEX: F ORDER DR: during the procedure, and permanent images were saved. Dictated by... Lashonda Samuel M.D. THIS IS AN ELECTRONICALLY VERIFIED REPORT Lashonda Samuel M.D. at 02/20/2017 4:58 PM AFF/ea TD: 02/20/2017 11:38 JOB #: [id number] MEDICAL IMAGING REPORT Page 1 of 1 COPY
--- NOTE | ~2017-02-17 | CR48 ---
[facility] A Service of [facility] RADIOLOGY TEXT RESULTS PATIENT: WANDA BARKER LOCATION: A 218 : 33 UNIT #: [id number] AGE: [address]: Loretta Rachel MD SEX: F ORDER DR: [id number] [facility] [address] [facility]. [place], [place] [address] [id number] I MR#: [id number] Acc #: [id number] NAME: WANDA BARKER. : 1935 SEX: F STUDY DATE/TIME: 02/19/2017 9:24 UNIT: [facility] ROOM: 218 STUDY DESCRIPTION: CR Bone Survey Attending Physician: Loretta Rachel M.D. Ordering Physician: Johnson Watson M.D. Primary Care Physician: Darian Benavides M.D. MEDICAL IMAGING REPORT This report is preliminary unless electronic signature is present EXAM Bone survey, 02/19/2017. INDICATION 82-year-old female with generalized weakness and anemia x1 day. TECHNIQUE Skeletal survey was performed to include lateral skull, AP and lateral cervical, thoracic, and lumbar spine, and AP views of the humeri and femurs, and AP chest and AP pelvis. FINDINGS The examination demonstrates afo-ctxhkhtf-fk-count, punched out lytic lesions within the calvaria and also within the proximal femurs bilaterally. Pattern most compatible with multiple myeloma. No lesions are identified to suggest a high risk for pathologic fracture though, due to patient's advanced age, this may be superimposed on osteopenia. Diffuse degenerative changes noted within the cervical, thoracic, and lumbar spine, most advanced in the lower lumbar spine with extensive lower lumbar spine facet arthropathy. No discrete fractures are seen. There is a suspected fracture involving the right posterolateral eighth rib that could represent a pathologic fracture and underlying bone lesion. Mild arthritic changes are seen within the hip joints and moderate arthritic changes seen within both knees with evidence of chondrocalcinosis. IMPRESSION 1. Xsg-kyoettbl-qn-count, small punched out lytic lesions within the bony calvaria and also within the proximal femurs, left greater than right. Findings highly concerning for multiple myeloma. Other metastatic lesions considered less likely. 2. Deformity of the right posterolateral eighth rib suggesting underlying fracture. There is an apparent soft tissue component. This may represent a pathologic fracture. [facility]. [facility] A Service of [facility] RADIOLOGY TEXT RESULTS PATIENT: WANDA BARKER LOCATION: [place] [address] : 33 UNIT #: [id number] AGE: [address]: Loretta Rachel MD SEX: F ORDER DR: 3. Multilevel degenerative disc changes throughout the spine most pronounced in the lower lumbar spine as well as moderately advanced arthritic changes, both knees. Dictated by... Dontrell Knutson M.D. THIS IS AN ELECTRONICALLY VERIFIED REPORT Dontrell Knutson M.D. at 02/20/2017 7:42 AM Whitney TD: 02/19/2017 19:26 JOB #: [id number] MEDICAL IMAGING REPORT Page 1 of 1 COPY
--- NOTE | ~2017-02-17 | CR63 ---
[facility]. [facility] A Service of [facility] RADIOLOGY TEXT RESULTS PATIENT: WANDA BAKRER LOCATION: [place] [address] : 33 UNIT #: [id number] AGE: [address]: Loretta Rachel MD SEX: F ORDER DR: [id number] [address] [address] [id number] E MR#: [id number] Acc #: [id number] NAME: WANDA BARKER : 1935 SEX: F STUDY DATE/TIME: 02/17/2017 9:49 UNIT: SED ROOM: STUDY DESCRIPTION: CR Chest 2 View Attending Physician: Bernardo Sethi M.D. Ordering Physician: Bernardo Sethi M.D. Primary Care Physician: Darian Benavides M.D. MEDICAL IMAGING REPORT This report is preliminary unless electronic signature is present. EXAM PA and lateral chest INDICATIONS Shortness of breath for 3 weeks. COMPARISON 02/13/2017. FINDINGS Worsening interstitial and airspace opacities consistent with worsening pulmonary edema. Heart size stable. Degenerative change thoracic spine. Atherosclerotic calcification aorta. IMPRESSION Interval worsening of interstitial and airspace opacities suggesting worsening pulmonary edema. Stable cardiomegaly. Dictated by... Clive Knutson M.D. THIS IS AN ELECTRONICALLY VERIFIED REPORT Clive Knutson M.D. at 02/18/2017 4:59 PM ARS/pcl TD: 02/17/2017 14:56 JOB #: [id number] MEDICAL IMAGING REPORT Page 1 of 1
--- NOTE | ~2017-02-17 | OR ---
Unit #: [id number] #: [id number] Patient: WANDA BARKER [id number] [address] [place], [place] [address] [id number] I MR#: [id number] NAME: WANDA BARKER. ROOM: 218 Date of Procedure: 02/20/2017 Admission Date: 02/18/2017 Surgeon: Jassi Torres M.D. : 1935 Attending Physician: Loretta Rachel M.D. Primary Care Physician: Darian Benavides M.D. OPERATIVE REPORT PROCEDURE PERFORMED Esophagogastroduodenoscopy with biopsy. INDICATIONS FOR PROCEDURE The patient with severe anemia, also with epigastric pain, nausea, and vomiting, undergoing evaluation with upper endoscopy. MEDICATIONS Monitored anesthesia. POSTOPERATIVE FINDINGS 1. Esophagitis with multiple ulcers in distal esophagus along with nonobstructing acquired esophageal ring and hiatal hernia. 2. Mild diffuse gastritis, biopsies taken. 3. Multiple small aphthous ulcers and lesions in duodenal bulb suggestive of duodenitis. PLAN Follow up on pathology report. Continue PPI therapy. DESCRIPTION OF PROCEDURE The patient was explained of the procedure, risks, and benefits along with risks and benefits of anesthesia. She was brought to the endoscopy room. Propofol anesthesia was given. Bite block was placed. The scope was passed down the mouth into the esophagus, stomach, duodenum, and distal duodenum. Findings as described. Biopsies taken. Gently, I pulled the scope out of the patient's mouth. She tolerated it well. Dictated by... Dinesh Dimas/demetria TD: 02/20/2017 12:43 JOB #: [id number] Unit #: [id number] #: [id number] Patient: WANDA BARKER OPERATIVE REPORT Page 1 of 1 X Jassi Torres MD X PROCEDURE OPERATIVE NOTE
--- NOTE | ~2017-02-17 | CT4 ---
[facility] A Service [facility] RADIOLOGY TEXT RESULTS PATIENT: WANDA BARKER LOCATION: [facility] : 33 UNIT #: [id number] AGE: [address]: Loretta Rachel MD SEX: F ORDER DR: [id number] [address] [address] [id number] E MR#: [id number] Acc #: [id number] NAME: WANDA BARKER : 1935 SEX: F STUDY DATE/TIME: 02/17/2017 11:22 UNIT: SED ROOM: STUDY DESCRIPTION: CT Abd and Pelv Wo Cont Attending Physician: Bernardo Sethi M.D. Ordering Physician: Bernardo Sethi M.D. Primary Care Physician: Darian Benavides M.D. MEDICAL IMAGING REPORT This report is preliminary unless electronic signature is present. EXAM CT abdomen and pelvis without contrast INDICATIONS No bowel movement for 10 days. Unable to get up for [address] of the abdomen and pelvis was performed with oral contrast only. Coronal and sagittal reformatted images were obtained. This CT exam was performed with one or more of the following radiation dose reduction techniques: automatic exposure control, adjustment of mA and/or kV according to patient size, and iterative reconstruction. COMPARISON STUDIES No comparisons available. FINDINGS There is a linear scarring or atelectasis in the lung bases. The liver, gallbladder and spleen are unremarkable. The kidneys and adrenal glands and pancreas are unremarkable. There is no evidence for bowel obstruction. PELVIS: Normal appendix. Sigmoid diverticulosis without evidence of diverticulitis. No free fluid. Bone windows show multiple old rib fractures. Degenerative changes lumbar spine. Chondrocalcinosis symphysis pubis. IMPRESSION 1. Sigmoid diverticulosis without evidence for diverticulitis. 2. No evidence for bowel obstruction. [facility] A Service [facility] RADIOLOGY TEXT RESULTS PATIENT: WANDA BARKER LOCATION: [facility] : 33 UNIT #: [id number] AGE: [address]: Loretta Rachel MD SEX: F ORDER DR: Dictated by... Clive Knutson M.D. THIS IS AN ELECTRONICALLY VERIFIED REPORT Clive Knutson M.D. at 02/18/2017 4:59 PM ARS/pcl TD: 02/17/2017 15:38 JOB #: [id number] MEDICAL IMAGING REPORT Page 1 of 1
[~2017-02-17 08:40] MED LIST changes: +ALENDRONATE SOD70 MG PO; +BENICAR PO; +CIPRO PO; +HYDROCODON-ACE1 EAC9 PO; +MICROZIDE12.5 M1 PO; +PATIENT'S PHARMACY; +TRAZODONE PO
[2017-02-17 09:47] LABS: BASOPHIL% 0.6 % (0-2.5); DIFF IND NO; EOSINOPHIL# 0.1 X10e3 (0-0.7); EOSINOPHIL% 1.5 % (0.0-7.0); HEMATOCRIT 24.2 % (35.0-45.0); LYMPHOCYTE# 1.1 X10e3 (1.0-3.5); LYMPHOCYTE% 20.1 % (17.0-45.0); MEAN CELL VOLUME 90.4 FL (83-96); MEAN CORPUSCULAR HGB CONC 33.2 g/dL (30-36); MEAN PLATELET VOLUME 7.8 FL (6.5-11.5); MONOCYTE# 0.7 X10e3 (0-1.0); MONOCYTE% 11.6 % (3.0-12.0); NEUTROPHIL# 3.7 X10e3 (1.5-7.1); NEUTROPHIL% 66.2 % (40-75); PLATELET COUNT 140 X10e3 (140-420); RED BLOOD COUNT 2.68 X10e (3.90-5.30); RED CELL DISTRIBUTION WIDTH 19.5 % (11.0-15.5); WHITE BLOOD COUNT 5.6 X10e3 (4.0-10.5)
[2017-02-17 09:50] LABS: MICRO INDICATED? YES; URINE APPEARANCE CLEAR; URINE BILIRUBIN NEG (NEG); URINE BLOOD 2+ (NEG); URINE COLOR YELLOW; URINE GLUCOSE NEG (NORM); URINE KETONE NEG (NEG); URINE LEUKOCYTE ESTERASE NEG (NEG); URINE NITRATE NEG (NEG); URINE PROTEIN 1+ (NEG); URINE SOURCE CATH
[2017-02-17 09:52] LABS: CULTURE INDICATED? NO; URINE BACTERIA NEG (NEG); URINE RBC 0-2 /[HPF] (0-2); URINE SQUAMOUS EPITHELIAL CELL MODERATE /[HPF]; URINE WBC 0-2 /[HPF] (0-5)
[2017-02-17 10:08] LABS: ALBUMIN SERUM 2.9 g/dL (3.5-5.0); ALKALINE PHOSPHATASE 37 U/L (32-92); ALT (SGPT) 19 U/L (10-40); AST (SGOT) 22 U/L (10-42); BILIRUBIN,TOTAL 0.7 mg/dL (0.2-2.0); BLOOD UREA NITROGEN 17 mg/dL (9-23); BUN/CREATININE RATIO 14.16; CALCIUM SERUM 8.6 mg/dL (8.4-10.2); CARBON DIOXIDE 22 mmol/L (22-31); CHLORIDE 103 mmol/L (100-111); CREATININE SERUM 1.2 mg/dL (0.6-1.4); GLOM FILT RATE Estimated 41.5 mL/min (>60); GLUCOSE FASTING 130 mg/dL (70-110); POTASSIUM 3.2 mmol/L (3.5-5.1); PROTEIN TOTAL SERUM 8.8 g/dL (6.0-8.3); SODIUM 139 mmol/L (135-145)
[2017-02-17 10:19] LABS: BILIRUBIN, DIRECT <0.1 mg/dL (0.0-0.2); BILIRUBIN,INDIRECT 0.6 mg/dL (0.0-0.9)
[2017-02-17 15:23] LABS: %MB 2.6 % (0.0-4.0)
[2017-02-18 05:59] LABS: HEMATOCRIT 23.7 % (35.0-45.0); HEMOGLOBIN 7.9 gm/dL (12.0-16.0); MEAN CELL VOLUME 89.8 FL (83-96); MEAN CORPUSCULAR HEMOGLOBIN 29.8 PG (28-34); MEAN CORPUSCULAR HGB CONC 33.2 g/dL (30-36); MEAN PLATELET VOLUME 7.8 FL (6.5-11.5); RED BLOOD COUNT 2.64 X10e (3.90-5.30); RED CELL DISTRIBUTION WIDTH 19.6 % (11.0-15.5); WHITE BLOOD COUNT 6.5 X10e3 (4.0-10.5)
[2017-02-18 06:58] LABS: BUN/CREATININE RATIO 14.54; CALCIUM SERUM 8.6 mg/dL (8.4-10.2); CREATININE SERUM 1.1 mg/dL (0.6-1.4); GLOM FILT RATE Estimated 46.1 mL/min (>60); MAGNESIUM 2.1 mg/dL (1.6-3.0); POTASSIUM 3.4 mmol/L (3.5-5.1)
[2017-02-18 15:18] LABS: INR 1.1; PARTIAL THROMBOPLASTIN TIME 32.2 SECONDS (23.5-31.3); PROTHROMBIN TIME (PATIENT) 12.2 SECONDS (10.0-11.7)
[2017-02-18 22:44] LABS: AMPHETAMINE NEG (NEG); BARBITURATES NEG (NEG); BENZODIAZEPINES NEG (NEG); COCAINE NEG (NEG); MARIJUANA NEG (NEG); OPIATES NEG (NEG); TRICYCLIC ANTIDEPRESSANTS NEG (NEG); U METHADONE NEG (NEG)
[2017-02-19 06:27] LABS: INR 1.1; PARTIAL THROMBOPLASTIN TIME 29.4 SECONDS (23.5-31.3); PROTHROMBIN TIME (PATIENT) 12.4 SECONDS (10.0-11.7)
[2017-02-19 06:34] LABS: HEMATOCRIT 21.5 % (35.0-45.0); MEAN CELL VOLUME 92.4 FL (83-96); MEAN CORPUSCULAR HEMOGLOBIN 29.6 PG (28-34); MEAN CORPUSCULAR HGB CONC 32.1 g/dL (30-36); MEAN PLATELET VOLUME 8.8 FL (6.5-11.5); RED BLOOD COUNT 2.32 X10e (3.90-5.30); RED CELL DISTRIBUTION WIDTH 19.7 % (11.0-15.5); WHITE BLOOD COUNT 5.6 X10e3 (4.0-10.5)
[2017-02-19 06:40] LABS: HEMOGLOBIN 6.9 gm/dL (12.0-16.0)
[2017-02-19 06:56] LABS: GLOM FILT RATE Estimated 51.7 mL/min (>60); MAGNESIUM 2.2 mg/dL (1.6-3.0); POTASSIUM 3.6 mmol/L (3.5-5.1)
[2017-02-20 05:39] LABS: HEMATOCRIT 23.3 % (35.0-45.0); HEMOGLOBIN 7.6 gm/dL (12.0-16.0); MEAN CELL VOLUME 90.4 FL (83-96); MEAN CORPUSCULAR HEMOGLOBIN 29.5 PG (28-34); MEAN CORPUSCULAR HGB CONC 32.6 g/dL (30-36); MEAN PLATELET VOLUME 8.2 FL (6.5-11.5); RED BLOOD COUNT 2.57 X10e (3.90-5.30); RED CELL DISTRIBUTION WIDTH 19.3 % (11.0-15.5); WHITE BLOOD COUNT 4.9 X10e3 (4.0-10.5)
[2017-02-20 06:08] LABS: ALBUMIN SERUM 2.5 g/dL (3.5-5.0); BILIRUBIN,TOTAL 0.4 mg/dL (0.2-2.0); BUN/CREATININE RATIO 13.75; CALCIUM SERUM 7.9 mg/dL (8.4-10.2); CREATININE SERUM 0.8 mg/dL (0.6-1.4); GLOM FILT RATE Estimated 67.8 mL/min (>60); POTASSIUM 3.5 mmol/L (3.5-5.1); PROTEIN TOTAL SERUM 8.1 g/dL (6.0-8.3)
[2017-02-20 15:16] LABS: HA AB IGM (HEPPAN) Nonreactive (()); HB CORE AB IGM (HEPPAN) Nonreactive (Nonreactive); HB S AG (HEPPAN) Nonreactive (Nonreactive); HEP C AB (HEPPAN) Nonreactive (Nonreactive)
[2017-02-21 06:23] LABS: HEMATOCRIT 21.9 % (35.0-45.0); HEMOGLOBIN 7.1 gm/dL (12.0-16.0); MEAN CELL VOLUME 90.8 FL (83-96); MEAN CORPUSCULAR HEMOGLOBIN 29.6 PG (28-34); MEAN CORPUSCULAR HGB CONC 32.6 g/dL (30-36); MEAN PLATELET VOLUME 8.5 FL (6.5-11.5); RED BLOOD COUNT 2.41 X10e (3.90-5.30); RED CELL DISTRIBUTION WIDTH 19.4 % (11.0-15.5); WHITE BLOOD COUNT 6.8 X10e3 (4.0-10.5)
[2017-02-21 06:38] LABS: BUN/CREATININE RATIO 21.11; CREATININE SERUM 0.9 mg/dL (0.6-1.4); GLOM FILT RATE Estimated 58.8 mL/min (>60); MAGNESIUM 2.5 mg/dL (1.6-3.0); POTASSIUM 4.5 mmol/L (3.5-5.1)
[2017-02-21 07:14] LABS: HA AB IGM (HEPPAN) Nonreactive (()); HB CORE AB IGM (HEPPAN) Nonreactive (Nonreactive); HB S AG (HEPPAN) Nonreactive (Nonreactive); HEP C AB (HEPPAN) Nonreactive (Nonreactive)
[2017-02-22 08:26] LABS: HEMATOCRIT 30.9 % (35.0-45.0); MEAN CELL VOLUME 90.9 FL (83-96); MEAN CORPUSCULAR HEMOGLOBIN 29.3 PG (28-34); MEAN CORPUSCULAR HGB CONC 32.3 g/dL (30-36); MEAN PLATELET VOLUME 8.2 FL (6.5-11.5); RED BLOOD COUNT 3.4 X10e (3.90-5.30); RED CELL DISTRIBUTION WIDTH 18.5 % (11.0-15.5); WHITE BLOOD COUNT 8.7 X10e3 (4.0-10.5)
[2017-02-22 08:57] LABS: MAGNESIUM 2.6 mg/dL (1.6-3.0); POTASSIUM 4.3 mmol/L (3.5-5.1)
[2017-02-22 12:41] LABS: ANA SCREEN Negative (Negative)
[2017-02-23 06:45] LABS: MAGNESIUM 2.3 mg/dL (1.6-3.0); POTASSIUM 3.7 mmol/L (3.5-5.1)
[2017-02-24 05:35] LABS: HEMATOCRIT 31.3 % (35.0-45.0); HEMOGLOBIN 10.4 gm/dL (12.0-16.0); MEAN CELL VOLUME 88.3 FL (83-96); MEAN CORPUSCULAR HEMOGLOBIN 29.3 PG (28-34); MEAN CORPUSCULAR HGB CONC 33.1 g/dL (30-36); RED BLOOD COUNT 3.54 X10e (3.90-5.30); WHITE BLOOD COUNT 6.1 X10e3 (4.0-10.5)
[2017-02-24 06:18] LABS: BUN/CREATININE RATIO 32.22; CALCIUM SERUM 7.8 mg/dL (8.4-10.2); CREATININE SERUM 0.9 mg/dL (0.6-1.4); GLOM FILT RATE Estimated 58.8 mL/min (>60); MAGNESIUM 2.2 mg/dL (1.6-3.0)
== END 2017-02-25 14:41 | DRG 441 ==
LOC: SED 08:40 → C2A 11:01 → SED 02-18 10:00 → C2A 02-18 10:00
PROVIDERS: Emergency Medicine; Internal Medicine; Internal Medicine Hematology & Oncology; Radiology Diagnostic Radiology
PROC: 07DR3ZX Extraction of Iliac Bone Marrow, Percutaneous Approach, Diagnostic (ICD-10-PCS; 2017-02-19)
PROC: 30233N1 Transfusion of Nonautologous Red Blood Cells into Peripheral Vein, Percutaneous Approach (ICD-10-PCS; 2017-02-19)
PROC: B246ZZZ Ultrasonography of Right and Left Heart (ICD-10-PCS; 2017-02-19)
PROC: 0DB68ZX Excision of Stomach, Via Natural or Artificial Opening Endoscopic, Diagnostic (ICD-10-PCS; principal; 2017-02-20 08:45)
DX: K72.90 Hepatic failure, unspecified without coma (principal); G92 Toxic encephalopathy; I50.31 Acute diastolic (congestive) heart failure; E44.0 Moderate protein-calorie malnutrition; C90.00 Multiple myeloma not having achieved remission; E87.2 Acidosis; F03.91 Unspecified dementia, unspecified severity, with behavioral disturbance; I13.0 Hypertensive heart and chronic kidney disease with heart failure and stage 1 through stage 4 chronic kidney disease, or unspecified chronic kidney disease; K22.10 Ulcer of esophagus without bleeding; N18.3 Chronic kidney disease, stage 3 (moderate); F41.9 Anxiety disorder, unspecified; Z87.891 Personal history of nicotine dependence; M81.0 Age-related osteoporosis without current pathological fracture; M19.90 Unspecified osteoarthritis, unspecified site; Z82.49 Family history of ischemic heart disease and other diseases of the circulatory system; E87.6 Hypokalemia; D64.9 Anemia, unspecified; K44.9 Diaphragmatic hernia without obstruction or gangrene; K29.70 Gastritis, unspecified, without bleeding; K22.8 Other specified diseases of esophagus; K12.0 Recurrent oral aphthae; K29.80 Duodenitis without bleeding; R19.7 Diarrhea, unspecified; D69.6 Thrombocytopenia, unspecified; E66.9 Obesity, unspecified; R73.9 Hyperglycemia, unspecified; T38.0X5A Adverse effect of glucocorticoids and synthetic analogues, initial encounter; Z68.31 Body mass index [BMI] 31.0-31.9, adult
CPT/HCPCS: 36415; 71010; 71020; 74170; 74176; 77012; 77075; 80048; 80053; 80074; 80076; 80307; 81003; 82140; 82274; 82550; 82553; 83735; 83880; 84132; 84484; 85025; 85027; 85379; 85384; 85610; 85730; 86038; 86039; 86376; 86850; 86900; 86901; 86923; 88182; 88184; 88185; 88305; 88311; 88312; 88313; 88341; 88342; 93306; 94760; 97116; 97162; 97167; 97535; 99285; G8978-GP; G8979-GP; G8987-GO; G8988-GO; J1100; J1630; J1650; J2250; J2405; J3010; P9016; Q9967

== ENCOUNTER 2017-04-14 10:07 | Inpatient (IN) | payer MEDICARE, OTHER ==
[~2017-04-14] VITALS: Ht 160 cm; Wt 82.0 kg
--- NOTE | ~2017-04-14 | DS ---
Unit #: [id number] #: [id number] Patient: WANDA ANN [id number] [address] [place], [place] [address] [id number] I MR#: [id number] NAME: WANDA ANN. ROOM: 225 Age: 82 Sex: F Admission Date: 04/15/2017 : 1935 Discharge Date: 04/18/2017 Attending Physician: Samuel Morales M.D. Primary Care Physician: Alo Rodriguez M.D. DISCHARGE SUMMARY PRINCIPAL DIAGNOSES 1. Hyperammonemia secondary to #2. 2. Aggressive multiple myeloma for which patient is refusing treatment. 3. Restless leg syndrome. 4. Severe insomnia. 5. Hypokalemia. 6. Hyperactive delirium. 7. Mild dementia with sundowning. 8. Non-anion gap metabolic acidosis secondary to diarrhea. 9. Gastritis. 10. Pulmonary hypertension. 11. Chronic diastolic congestive heart failure without exacerbation. 12. Obesity. CONSULTANTS Dr. Watson - Oncology. PROCEDURES 1. Chest x-ray on April 14, 2017, with chronic interstitial changes, no acute findings. 2. CT of the head without contrast on April 14, 2017, with no acute findings. Signs of inflammatory changes noted. Innumerable lucent lesions throughout the calvaria consistent to patient's known multiple myeloma. 3. Abdominal ultrasound April 16, 2017, with no evidence of ascites. CLINICAL HISTORY AND HOSPITAL COURSE Ms. Ann is an 82-year-old female with a history of known P53 mutation who presents back to the emergency department with change in mental status. Patient was hospitalized at this facility in February of 2017 and was found to have significantly elevated ammonia level. However, she underwent workup for underlying liver disease and really none was found. She was placed on lactulose and Xifaxan which she had been taking was prescribed but her ammonia level continued to increase and patient was subsequently admitted. Patient was placed on increasing doses of lactulose but her ammonia level really did not change much and ranged anywhere from 100 to 140 and, for the most part, patient was awake and alert at these levels. Dr. Watson was consulted regarding her multiple myeloma. I will not patient had failed steroid treatment in the past due to significant agitation as a result of steroids. Literature review was done and there are case studies of significant elevated ammonia levels secondary to aggressive multiple myeloma and it is felt that patient's hyperammonemia is secondary to Unit #: [id number] #: [id number] Patient: WANDA ANN A aggressive multiple myeloma. Treatment options were discussed with patient and her family and at this point they are not opting for treatment given she had no change to her ammonia levels on Xifaxan and lactulose and again this does not appear to be a liver mediated elevation. These medications have been discontinued. Goals of care were discussed with the family and at this point again no plans for any treatment of multiple myeloma and patient goal is comfort only. Patient continues to have significant insomnia with associated hyperactive delirium at nighttime. Medications were adjusted and patient last night slept and, in fact, is perhaps having some medication induced drowsiness this morning. I am going to adjust medications as outlined below and, again, these can be adjusted at the custodial facility as needed. Patient also had significant restless leg syndrome which is much improved on Mirapex. Plan is for patient to be discharged to a nursing facility today and hopefully with the hopes of rehab. If patient's physical and mental status decline, goal is comfort only. Family agrees to DNR status. They also agree to DO NOT HOSPITALIZE status. DISCHARGE CONDITION Stable currently. DISCHARGE STATUS Discharge to nursing facility. DISCHARGE MEDICATIONS 1. Benicar 20 mg at bedtime. 2. Mirapex 1 mg at bedtime. 3. Seroquel 100 mg at bedtime. 4. Valium 5 mg at bedtime p.r.n. for insomnia. 5. Biofreeze to joints p.r.n. 6. Rossiter 5/325 mg, 1 tablet every 8 hours p.r.n. for pain. DISCHARGE INSTRUCTIONS Patient can follow a regular diet. She can increase her activity as tolerated. I will not again she is DNR and is a DO NOT HOSPITALIZE. FOLLOWUP Per medical imaging specialist of facility. I will not patient has been seen by hospice here and they are willing to assume care if patient's physical and mental status decline and is in agreement with facility care protocol. Time spent on discharge - 34 minutes. Dictated by... Loretta Rachel M.D. ROBERT/marissa TD: 04/18/2017 09:09 JOB #: [id number] Unit #: [id number] #: [id number] Patient: WANDA ANN DISCHARGE SUMMARY Page 1 of 1 X Loretta Rachel MD X DISCHARGE SUMMARY
--- NOTE | ~2017-04-14 | CT71 ---
[facility] A Service of [facility] & [facility] RADIOLOGY TEXT RESULTS PATIENT: WANDA BARKER LOCATION: [facility] : 33 UNIT #: [id number] AGE: [address]: Samuel Morales MD SEX: F ORDER DR: [id number] [facility] [address] [place], [place] [address] [id number] I MR#: [id number] Acc #: [id number] NAME: WANDA BARKER. : 1935 SEX: F STUDY DATE/TIME: 04/14/2017 12:14 UNIT: C3A PCU ROOM: [facility] STUDY DESCRIPTION: CT Head Wo Contrast Attending Physician: Samuel Morales M.D. Ordering Physician: Gary Burton D.O. Primary Care Physician: Alo Rodriguez M.D. MEDICAL IMAGING REPORT This report is preliminary unless electronic signature is present EXAM CT head without contrast. INDICATIONS Confusion for 2 days and encephalopathy. Patient's ammonia levels are also increased. TECHNIQUE Axial CT images were obtained from the vertex of the skull base. No intravenous contrast material was administered. This CT exam was performed with one or more of the following radiation dose reduction techniques: automatic exposure control, adjustment of mA and/or kV according to patient size, and iterative reconstruction. FINDINGS No acute intracranial hemorrhage is identified. This patient is noted to have diffuse cerebral atrophy with compensatory ventricular dilatation which is in keeping with the age of 82. This appearance is probably stable when compared to the February 13, 2017 examination. Periventricular and deep white matter microangiopathic change is noted. I do not see any definite focal areas of decreased attenuation. There is atherosclerotic involvement of the cavernous carotid arteries. Multifocal lucencies are seen throughout the calvaria. Similar findings were present on the prior study from February 13, 2017. Appearance is probably stable when compared to that study. I suspect it is probably a benign finding. Patient is noted to have some mucosal thickening within the ethmoid sinuses. Mastoid air cells appear clear. IMPRESSION 1. No acute intracranial process is identified. Specifically there is no evidence of acute hemorrhage, mass lesion or acute infarct. 2. Sinus inflammatory changes as noted above. [facility]. [facility] A Service of [facility] & [facility] RADIOLOGY TEXT RESULTS PATIENT: WANDA BARKER LOCATION: [facility] 225-01 : 33 UNIT #: [id number] AGE: [address]: Samuel Morales MD SEX: F ORDER DR: 3. Innumerable lucent lesions seen throughout the calvaria of uncertain clinical significance. They were also present in January 2017 are not really significantly changed. I suspect it is probably a benign finding but correlation with any prior history of malignancy is recommended. Dictated by... Lashonda Samuel M.D. THIS IS AN ELECTRONICALLY VERIFIED REPORT Lashonda Samuel M.D. at 04/15/2017 5:04 PM AFF/gz TD: 04/15/2017 11:31 JOB #: [id number] MEDICAL IMAGING REPORT Page 1 of 1 COPY
--- NOTE | ~2017-04-14 | HP ---
Unit #: [id number] #: [id number] Patient: WANDA BARKER [id number] [address] [address] [id number] I MR#: [id number] NAME: WANDA BARKER. ROOM: 341 Age: 82 Sex: F Admission Date: 04/14/2017 : 1935 Attending Physician: Cora Sims M.D. Primary Care Physician: Alo Rodriguez M.D. HISTORY AND PHYSICAL CHIEF COMPLAINT Altered mental status. HISTORY OF PRESENT ILLNESS The patient is an 82-year-old female with a history of multiple myeloma, hypertension, and osteoporosis, brought to the emergency room with confusion for two days. The patient was found to have an ammonia level of up to 130. The patient has had multiple admissions in the past for similar reasons. The patient is a poor historian, and the history is obtained by speaking to the ER physician and the R.N. at the bedside. The patient was found to be confused. Denies any fever. Denies any chills. Denies any abdominal pain. PAST MEDICAL HISTORY 1. Multiple myeloma. 2. Osteoporosis. 3. Hypertension. 4. Vitamin B12 deficiency. PAST SURGICAL HISTORY Left knee surgery. HOME MEDICATIONS 1. Ferrous sulfate. 2. Benicar. 3. Sodium bicarbonate. 4. Xifaxan. 5. Haloperidol. 6. Lasix. 7. Pantoprazole. 8. Lactulose. 9. Hydrocodone and acetaminophen. 10. Seroquel. 11. Biofreeze. ALLERGIES Macrobid and clarithromycin. FAMILY HISTORY cardiomyopathy and coronary artery disease. SOCIAL HISTORY The patient has been residing with her daughter. No history of smoking cigarettes, drinking alcohol, or any illicit drug abuse. Unit #: [id number] #: [id number] Patient: WANDA BARKER REVIEW OF SYSTEMS Unable to obtain as the patient is confused and unable to provide any history. However, the patient denies any abdominal pain and denies any nausea and vomiting. All other systems have been reviewed and are negative. PHYSICAL EXAMINATION GENERAL: Patient is lying in bed not in acute distress. VITAL SIGNS: Temperature is 97.5, pulse 89, respiratory rate 16, blood pressure 164/56, saturating 99% at room air. HEENT: Head atraumatic, normocephalic. Pupils equal, round, and reactive to light and accommodation. Extraocular movements are intact. NECK: Supple. LUNGS: Decreased air entry at the bases. HEART: Regular rate and rhythm. ABDOMEN: Soft. Positive bowel sounds. EXTREMITIES: No cyanosis, no clubbing. NEUROLOGIC: Patient is alert, awake, and confused. No gross focal motor deficit. DIAGNOSTIC STUDIES LABORATORY: WBC 5.4, hemoglobin 8.1, hematocrit 24.3, platelets 185,000. Glucose 171. Ammonia is 130. INR is 1.1. Sodium is 139, potassium 3.8, chloride 104, bicarb 24, glucose 170, BUN 19, creatinine 1.1, calcium is 9, AST 19, ALT 13, alkaline phosphatase 49, total protein 8.4, albumin 3. Acetaminophen level less than 10. Salicylates less than 4. Alcohol less than 5. Urinalysis shows 1+ protein, negative bacteria. Urine drug screen is positive for opiates. Fecal occult blood test is negative. ASSESSMENT 1. Altered mental status likely secondary to hyper ammonia level. 2. Anemia. PLAN Admit the patient to observation with telemetry. Continue with lactulose and Xifaxan. Will have a GI consult with Dr. Torres as seen in the past for similar reasons. Patient will have an OT/PT evaluation. Hold the haloperidol and the narcotics, and further recommendations will follow as more lab results are available. Dictated by Dinesh Shen TD: 04/14/2017 19:57 JOB #: [id number] Unit #: [id number] #: [id number] Patient: WANDA BARKER HISTORY AND PHYSICAL Page 1 of 1 X CORA SIMS MD HISTORY AND PHYSICAL
--- NOTE | ~2017-04-14 | CR72 ---
[facility] A Service of [facility] & [facility] RADIOLOGY TEXT RESULTS PATIENT: WANDA BARKER LOCATION: [facility] 341- : [birth year] UNIT #: [id number] AGE: [address]: Samuel Morales MD SEX: F ORDER DR: [id number] [facility] [address] [place] [address]. [place], [place] [address] [id number] I MR#: [id number] Acc #: [id number] NAME: WANDA BARKER. : 1935 SEX: F STUDY DATE/TIME: 04/14/2017 11:06 UNIT: [address] ROOM: [facility] STUDY DESCRIPTION: CR Chest Single View Portable Attending Physician: Samuel Morales M.D. Ordering Physician: Gary Burton D.O. Primary Care Physician: Alo Rodriguez M.D. MEDICAL IMAGING REPORT This report is preliminary unless electronic signature is present EXAM Single portable AP view of the chest compared to 02/17/2017. INDICATIONS Shortness of air. 1-day duration. FINDING Heart mediastinal contours are unchanged. There is chronic interstitial opacities in both lungs. No new pulmonary opacities. No pleural effusion. IMPRESSION No acute cardiopulmonary findings. Chronic interstitial changes. Dictated by... Will Bradford M.D. THIS IS AN ELECTRONICALLY VERIFIED REPORT Will Bradford M.D. at 04/15/2017 11:47 AM DINORA/diana TD: 04/15/2017 09:55 JOB #: [id number] MEDICAL IMAGING REPORT Page 1 of 1 COPY
--- NOTE | ~2017-04-14 | CO ---
Unit #: [id number] #: [id number] Patient: WANDA ANN [id number] [address] [place], [place] [address] [id number] I MR#: [id number] NAME: WANDA ANN ROOM: 225 Age: 82 Sex: F Admission Date: 04/15/2017 : 1935 Attending Physician: Samuel Morales M.D. Primary Care Physician: Alo Rodriguez M.D. Consultation Date: 04/15/2017 CONSULTATION REPORT REASON FOR CONSULTATION Hepatic encephalopathy, history of multiple myeloma. HISTORY OF PRESENT ILLNESS Ms. Wanda Ann is well known to me with a history of recent multiple myeloma diagnosed during her February admission, who was transferred to rehab facility, [place], and thereafter discharged home 3 weeks ago. During her rehab facility and immediately post-discharge, she was doing extremely well independent living with physical therapy at home. She now is readmitted to the hospital with altered mental status secondary to hepatic encephalopathy. Her lactulose has been adjusted and she is clinically feeling better. PAST MEDICAL HISTORY Pseudogout, osteoporosis, multiple myeloma diagnosed in view of elevated total protein. Bone marrow aspiration and biopsy on 02/19/2017 showed a hypercellular marrow with 98% replacement with plasma cells. FISH showed gain of chromosome 1q21, deletion of 13q, deletion of TP53, 17p 13.1, loss of FGFR3/4p16.3. At this point, lactulose, which she was taking b.i.d., has been increased and she was feeling better. At this admission, her ammonia level at the time of initial admission was 130 and is currently 112. A CT scan of the head done without contrast was negative. PAST SURGICAL HISTORY No recent surgeries. FAMILY HISTORY Negative. SOCIAL HISTORY Quit smoking 25 years ago. She is single and lives by herself. Has 6 children, who live locally and assist in her care. ALLERGIES No known medication allergies. REVIEW OF SYSTEMS A 14-point review of systems attempted with the patient, who is somewhat confused. CONSTITUTIONAL: Fatigue and weakness in the past week, but previously she was doing extremely well according to her daughter at bedside, with a good appetite as well. EYES: Negative. Unit #: [id number] #: [id number] Patient: WANDA ANN EARS, NOSE, MOUTH, AND THROAT: Negative. CARDIOVASCULAR: Negative. RESPIRATORY: Negative. GASTROINTESTINAL: A few loose stools related to the lactulose. GENITOURINARY: Negative. NEUROLOGIC: Confusion and marked trouble sleeping with memory issues. ALLERGY/IMMUNOLOGIC: Negative. LYMPHATIC: Negative. NEUROLOGIC: As discussed. PSYCHIATRIC: Negative. PHYSICAL EXAMINATION GENERAL: She is a pleasant elderly woman, sitting in chair, eating her lunch. VITAL SIGNS: Temperature 97.7, pulse 81, respiratory rate 18, blood pressure 152/56, O2 saturation 97% on room air. HEENT: Shows pupils are equal and reactive well to light. Mild pallor. No icterus. Mucous membranes are moist. NECK: Without adenopathy, JVD, or thyromegaly. CARDIOVASCULAR: First and second heart sounds are heard and regular. No murmurs, gallops, or rubs. LUNGS: Chest expansion is symmetric. Bilateral equal air entry with normal breath sounds. ABDOMEN: Soft and nontender. Bowel sounds are active. EXTREMITIES: Warm with good pulses. No edema, cyanosis, or clubbing. NEUROLOGIC: She is awake, alert, and oriented, but tends to get confused with more questioning. No focal deficit, but she has mild asterixis. DIAGNOSTIC STUDIES LABORATORY RESULTS: Admission CBC with a white count of 5.4, hemoglobin is 8.1, platelets 185,000. Ammonia level is 130. Her prothrombin time is 12.31, INR is 1.1, PTT is 28.7. Basic metabolic panel shows an AST of 19, ALT of 13, bilirubin is 0.4, total protein is 8.4 with an albumin of 3. IMAGING STUDIES: CT scan of the head as mentioned. ASSESSMENT AND PLAN Ms. Wanda Ann is an 82-year-old with a history of recently diagnosed aggressive multiple myeloma and recurrent hepatic encephalopathy, readmitted to the hospital with an elevated ammonia level and confusion. She is now better with optimization of her lactulose dosing and drop in ammonia level. I had a detailed discussion with the patient, daughter, and son-in-law at bedside. We discussed about hepatic encephalopathy, which remains unexplained as it is probably related to her multiple myeloma given no prior history of liver disease or alcohol abuse. Previously done CT scan did not show any chronic findings to suggest chronic liver disease. She can certainly have a liver biopsy to confirm additional etiology such as amyloid, but given the situation, I am not sure it would be beneficial at this point, which I discussed with them. Discussed about multiple myeloma, which has not been treated, and after previous discussion during the last hospital stay, family intended to keep her comfortable and palliate without specific treatment. I recommended optimization of treatment of hepatic encephalopathy with the increase in Seroquel at bedtime to help with sleep. We will plan to check an ammonia level weekly as an outpatient in the office, and based upon stabilization, can consider treatment of multiple myeloma. Thank you for allowing me to participate in her care. Unit #: [id number] #: [id number] Patient: LUCEROBRENDAKAYLEEN Reid Dictated by... Dinesh Javed/modl TD: 04/16/2017 03:45 JOB #: [id number] CC: Darian Benavides M.D. CONSULTATION REPORT Page 1 of 1 X Johnson Watson MD CONSULTATION REPORT
--- NOTE | ~2017-04-14 | US6 ---
[facility] A Service of [facility] & [facility] RADIOLOGY TEXT RESULTS PATIENT: WANDA BARKER LOCATION: A : 31 UNIT #: [id number] AGE: [address]: Samuel Morales MD SEX: F ORDER DR: [id number] [facility] [address] [place], [place] [address] [id number] I MR#: [id number] Acc #: [id number] NAME: WANDA BARKER. : 1935 SEX: F STUDY DATE/TIME: 04/16/2017 8:26 UNIT: [facility] ROOM: [facility] STUDY DESCRIPTION: US Abdominal Limited Attending Physician: Samuel Morales M.D. Ordering Physician: Loretta Rachel M.D. Primary Care Physician: Alo Rodriguez M.D. MEDICAL IMAGING REPORT This report is preliminary unless electronic signature is present EXAM US abdomen limited HISTORY Distention, short of air, abdominal fullness 3 days. Assess for ascites. FINDINGS Realtime ultrasonography of the bilateral upper and lower quadrants performed. No ascites is seen. The visualized portion of gallbladder is grossly unremarkable. Visualized liver shows no definite focal abnormality. Study was not tailored for assessment of these structures. Visualized left kidney unremarkable. IMPRESSION No ascites is seen. If it would assist in management, the abdomen pelvis could be further evaluated with CT examination. Dictated by... Dave Driver M.D. THIS IS AN ELECTRONICALLY VERIFIED REPORT Dave Driver M.D. at 04/17/2017 2:25 PM DEVON/vane TD: 04/17/2017 00:56 JOB #: [id number] MEDICAL IMAGING REPORT Page 1 of 1 COPY
[2017-04-14 11:05] LABS: BASOPHIL% 0.5 % (0-2.5); DIFF IND NO; EOSINOPHIL# 0.1 X10e3 (0-0.7); EOSINOPHIL% 1.8 % (0.0-7.0); HEMATOCRIT 24.3 % (35.0-45.0); HEMOGLOBIN 8.1 gm/dL (12.0-16.0); LYMPHOCYTE# 1.1 X10e3 (1.0-3.5); LYMPHOCYTE% 20.3 % (17.0-45.0); MEAN CELL VOLUME 89.9 FL (83-96); MEAN CORPUSCULAR HEMOGLOBIN 30.1 PG (28-34); MEAN CORPUSCULAR HGB CONC 33.5 g/dL (30-36); MEAN PLATELET VOLUME 7.6 FL (6.5-11.5); MONOCYTE# 0.6 X10e3 (0-1.0); MONOCYTE% 10.4 % (3.0-12.0); NEUTROPHIL# 3.6 X10e3 (1.5-7.1); PLATELET COUNT 185 X10e3 (140-420); RED CELL DISTRIBUTION WIDTH 19.6 % (11.0-15.5); WHITE BLOOD COUNT 5.4 X10e3 (4.0-10.5)
[2017-04-14 11:15] LABS: INR 1.1; PARTIAL THROMBOPLASTIN TIME 28.7 SECONDS (23.5-31.3); PROTHROMBIN TIME (PATIENT) 12.3 SECONDS (10.0-11.7)
[2017-04-14 11:29] LABS: ALKALINE PHOSPHATASE 49 U/L (32-92); ALT (SGPT) 13 U/L (10-40); AST (SGOT) 19 U/L (10-42); BILIRUBIN,TOTAL 0.5 mg/dL (0.2-2.0); BLOOD UREA NITROGEN 19 mg/dL (9-23); BUN/CREATININE RATIO 17.27; CARBON DIOXIDE 24 mmol/L (22-31); CHLORIDE 104 mmol/L (100-111); CREATININE SERUM 1.1 mg/dL (0.6-1.4); GLOM FILT RATE Estimated 46.1 mL/min (>60); GLUCOSE FASTING 170 mg/dL (70-110); POTASSIUM 3.8 mmol/L (3.5-5.1); PROTEIN TOTAL SERUM 8.4 g/dL (6.0-8.3); SALICYLATE <4.0 mg/dL; SODIUM 139 mmol/L (135-145)
[2017-04-14 11:30] LABS: ACETAMINOPHEN <10 ug/mL; ALCOHOL BLOOD <5 mg/dL (0); BILIRUBIN, DIRECT <0.1 mg/dL (0.0-0.2); BILIRUBIN,INDIRECT 0.4 mg/dL (0.0-0.9)
[2017-04-14 12:07] LABS: URINE SOURCE CLEAN CATCH
[2017-04-14 12:10] LABS: URINE APPEARANCE CLEAR; URINE BILIRUBIN NEG (NEG); URINE BLOOD TRACE (NEG); URINE COLOR YELLOW; URINE GLUCOSE NEG (NEG); URINE KETONE NEG (NEG); URINE LEUKOCYTE ESTERASE NEG (NEG); URINE NITRATE NEG (NEG); URINE PH 7.5 (5-8); URINE PROTEIN 1+ (NEG); URINE SPECIFIC GRAVITY 1.012 (1.003-1.035); URINE UROBILINOGEN 0.2 MG/DL (NEG)
[2017-04-14] MEDS ORDERED: FERRO-TIME325 MG PO (12:10)
[2017-04-14] MEDS ORDERED: BENICAR20 MG PO (12:11)
[2017-04-14] MEDS ORDERED: SODIUM BICARBO650 MG PO (12:11)
[2017-04-14] MEDS ORDERED: XIFAXAN550 MG PO (12:12)
[2017-04-14] MEDS ORDERED: LASIX20 MG PO (12:12)
[2017-04-14] MEDS ORDERED: HALDOL PO (12:12)
[2017-04-14 12:13] LABS: URINE BACTERIA AUWI NEG (NEGATIVE); URINE SQUAMOUS EPITHELIAL CELL NONE SEEN /[HPF]; UWBCS1 AUWI 0-2 (0-5)
[2017-04-14] MEDS ORDERED: KRISTALOSE10 GM PO (12:13)
[2017-04-14] MEDS ORDERED: PANTOPRAZOLE SO40 MG PO (12:13)
[2017-04-14] MEDS ORDERED: HYDROCODON-ACE1 EAC7 PO (12:14)
[2017-04-14] MEDS ORDERED: BIOFREEZE118 ML TOP (12:14)
[2017-04-14] MEDS ORDERED: SEROQUEL25 MG PO (12:14)
[2017-04-14 12:15] LABS: CULTURE INDICATED? NO
[2017-04-14 12:21] LABS: AMPHETAMINE NEG (NEG); BARBITURATES NEG (NEG); BENZODIAZEPINES NEG (NEG); COCAINE NEG (NEG); MARIJUANA NEG (NEG); OPIATES POS (NEG); TRICYCLIC ANTIDEPRESSANTS NEG (NEG); U METHADONE NEG (NEG)
[2017-04-15 07:23] LABS: BASOPHIL% 0.4 % (0-2.5); EOSINOPHIL# 0.1 X10e3 (0-0.7); EOSINOPHIL% 1.6 % (0.0-7.0); HEMATOCRIT 24.1 % (35.0-45.0); HEMOGLOBIN 8.1 gm/dL (12.0-16.0); LYMPHOCYTE# 1.3 X10e3 (1.0-3.5); LYMPHOCYTE% 22.8 % (17.0-45.0); MEAN CELL VOLUME 90.4 FL (83-96); MEAN CORPUSCULAR HEMOGLOBIN 30.4 PG (28-34); MEAN CORPUSCULAR HGB CONC 33.6 g/dL (30-36); MONOCYTE# 0.6 X10e3 (0-1.0); MONOCYTE% 10.8 % (3.0-12.0); NEUTROPHIL# 3.7 X10e3 (1.5-7.1); NEUTROPHIL% 64.4 % (40-75); PLATELET COUNT 173 X10e3 (140-420); RED BLOOD COUNT 2.66 X10e (3.90-5.30); RED CELL DISTRIBUTION WIDTH 20.1 % (11.0-15.5); WHITE BLOOD COUNT 5.8 X10e3 (4.0-10.5)
[2017-04-15 07:26] LABS: DIFF IND NO
[2017-04-15 07:54] LABS: BUN/CREATININE RATIO 18.88; CALCIUM SERUM 9.1 mg/dL (8.4-10.2); CREATININE SERUM 0.9 mg/dL (0.6-1.4); GLOM FILT RATE Estimated 58.8 mL/min (>60); POTASSIUM 3.5 mmol/L (3.5-5.1)
[2017-04-16 08:03] LABS: CALCIUM SERUM 8.8 mg/dL (8.4-10.2); GLOM FILT RATE Estimated 51.7 mL/min (>60); POTASSIUM 3.3 mmol/L (3.5-5.1)
[2017-04-16 16:17] LABS: ARTERIAL BLD GAS O2 SATURATION 94.8 % (90.0-100.0); ARTERIAL BLOOD GAS CARBOXY HB 1.2 %sat (0.0-9.0); ARTERIAL BLOOD GAS HCO3 24.6 mmol/L; ARTERIAL BLOOD GAS MET HB 0.6 %sat (0.0-2.0); ARTERIAL BLOOD GAS PCO2 35.5 mmHg (35.0-45.0); ARTERIAL BLOOD GAS pH 7.449 (7.350-7.450)
[2017-04-16 16:18] LABS: ARTERIAL BLOOD GAS ALLEN TEST NORMAL; ARTERIAL BLOOD GAS ART SITE RIGHT RADIAL; ARTERIAL BLOOD GAS DELIVERY RA; ARTERIAL BLOOD GAS PO2 77.5 mmHg (80.0-100); ARTERIAL DRAW? YES
[2017-04-17 05:44] LABS: CALCIUM SERUM 8.9 mg/dL (8.4-10.2); GLOM FILT RATE Estimated 51.7 mL/min (>60); POTASSIUM 3.7 mmol/L (3.5-5.1)
== END 2017-04-18 14:02 | DRG 841 ==
LOC: CED 10:07 → CEDOF 12:41 → C2A 12:41 → C3A PCU 19:52 → CEDOF 19:52 → C3A PCU 19:52 → CEDOF 04-15 10:45 → C2A 04-15 10:45 → C3A PCU 04-15 14:41 → C2A 04-18 14:02
PROVIDERS: Emergency Medicine; Internal Medicine
DX: C90.00 Multiple myeloma not having achieved remission (principal); E72.20 Disorder of urea cycle metabolism, unspecified; E87.2 Acidosis; I11.0 Hypertensive heart disease with heart failure; I50.32 Chronic diastolic (congestive) heart failure; F05 Delirium due to known physiological condition; F03.90 Unspecified dementia, unspecified severity, without behavioral disturbance, psychotic disturbance, mood disturbance, and anxiety; K72.90 Hepatic failure, unspecified without coma; D64.9 Anemia, unspecified; E87.6 Hypokalemia; M81.0 Age-related osteoporosis without current pathological fracture; Z88.1 Allergy status to other antibiotic agents; Z82.49 Family history of ischemic heart disease and other diseases of the circulatory system; G25.81 Restless legs syndrome; G47.00 Insomnia, unspecified; R19.7 Diarrhea, unspecified; K29.70 Gastritis, unspecified, without bleeding; E66.9 Obesity, unspecified
CPT/HCPCS: 36415; 36600; 70450; 71010; 76705; 80048; 80076; 80307; 81003; 82140; 82803; 82947; 83735; 85025; 85610; 85730; 97110; 97116; 97161; 97166; 97530; 97535; 99285; G0480; G8978-GP; G8979-GP; G8987-GO; G8988-GO; J1650; J2405